=== PATIENT | male | born 1970 | race Caucasian/White ===

== ENCOUNTER 2024-04-02 11:02 | Day surgery (SDC) | payer MEDICAID, SELFPAY ==
[2024-04-02] VITALS (12 sets, daily range): BP systolic 98–191; BP diastolic 54–99; PULSE 86–111; RESP 8–22; TEMP 36.2–36.8; O2SAT 94–96; BMI 35.3
--- NOTE | 2024-04-02 11:36 | DI.CT_ITS ---
Exam(s) CT ABDOMEN PELVIS W EXAM: CT ABDOMEN PELVIS W CLINICAL HISTORY: Umbilical hernia, Abdominal pain TECHNIQUE: Imaging Protocol: Axial computed tomography images with coronal and sagittal reformatted images were created and reviewed. CONTRAST MATERIAL: Intravenous: Omnipaque 350 Contrast volume:100 mL Oral: No COMPARISON: No exams were available for comparison FINDINGS: ABDOMEN: Lung Bases: No acute abnormality. Liver: There is diffuse decreased attenuation of the liver. There are nonspecific parenchymal calcif ications seen in the dome of the right lobe of the liver. Portal, Superior Mesenteric, and Splenic Veins: Unremarkable. Gallbladder and Biliary Tract: Cholelithiasis. No biliary ductal dilatation. Pancreas: Normal density, no abnormal calcifications or inflammatory process. Spleen: Normal. Adrenals: No masses seen. Kidneys: Normal size, contour and axis. Bilateral nephrolithiasis. No obstructive uropathy. No mass es seen. Abdominal Aorta: Abdominal portion non-dilated. Mild atherosclerotic calcification is present. IVC: There is a left-sided inferior vena cava. Bowel: There is diverticulosis of the colon without evidence of acute diverticulitis. The stomach is incompletely distended limiting evaluation. Appendix is unremarkable. Peritoneal Cavity: No ascites, collection or mesenteric inflammatory response. No free air. Lymph Nodes: Within normal limits. Bones: Within normal limits for the patient's age. Soft Tissues: There is a small fat containing left inguinal hernia. There is a moderate-sized fat co ntaining umbilical hernia. There does appear to be omentum located within the hernia. There is fat stranding seen within the hernia. There is a small amount of fluid in the hernia. PELVIS: Bladder: Symmetric distention, no gross wall thickening. Reproductive Organs: Unremarkable as visualized. Lymph Nodes: Within normal limits. Bones: Within normal limits for the patient's age. IMPRESSION: 1. Umbilical hernia containing omentum. There is fat stranding and fluid seen within the hernia. Th e findings suggest incarceration. 2. Findings were discussed with the Savannah Monterroso at 1:44 p.m. on 04/02/2024. RADIATION DOSE DELIVERED: 975.24mGy.cm Total DLP DATA REPOSITORY: All CT scans at this facility are submitted to the National Radiology Data Registry (NRDR) Dose Index Registry (DIR) with the [employer] (ACR). RADIATION OPTIMIZATION: All CT scans at this facility use at least one of these dose optimization te chniques: automated exposure control; mA and/or kV adjustment per patient size (includes targeted exa ms where dose is matched to clinical indication); or iterative reconstruction.
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
[2024-04-02 12:15] LABS: Abs Immature Grans 0.06 10^3/uL (0.0-0.06); Absolute Basophil Count 0.07 10^3/uL (0.0-0.2); Absolute Eosinophil Count 0.15 10^3/uL (0.0-0.7); Absolute Lymphocyte Count 1.45 10^3/uL (1.2-3.4); Absolute Monocyte Count 0.51 10^3/uL (0.1-0.8); Absolute Neutrophil Count 2.77 10^3/uL (1.2-6.7); Basophils % 1.4 %; HCT 45.6 % (40.0-50.0); HGB 15.8 g/dL (13.5-17.5); Immature Grans % 1.2 %; Lactate 1.2 mmol/L (<or=2.0); Lymphocytes % 28.9 %; MCH 29.4 pg (27.0-33.0); MCHC 34.6 % (32.0-36.0); MCV 85 fL (80-95); Monocytes % 10.2 %; Neutrophils % 55.3 %; Platelet Count 233 10^3/uL (130-400); RBC 5.38 10^6/uL (4.36-5.78); RDW 12.3 % (11.8-14.1); RDW-SD 37.7 fL; WBC 5.01 10^3/uL (4.4-10.8)
[2024-04-02 12:33] LABS: ALT 94 U/L (16-63); AST 26 U/L (15-37); Albumin 3.9 g/dL (3.4-5.0); Alkaline Phosphatase 157 U/L (46-116); Anion Gap 9.9 mmol/L (3-11); BUN 14 mg/dL (7-18); Bilirubin, Total 0.52 mg/dL (0.2-1.0); CO2 25.1 mmol/L (21.0-32.0); CREATININE 0.8 mg/dL (0.70-1.30); Calcium 9.5 mg/dL (8.5-10.1); Chloride 99 mmol/L (98-107); Estimated GFR 105.82 (mL/min/1.73m2); Glucose 324 mg/dL (74-106); Lipase 37 U/L (<78); Magnesium 1.8 mg/dL (1.8-2.4); Potassium 4.4 mmol/L (3.5-5.1); Sodium 134 mmol/L (136-145)
[2024-04-02] MEDS: Normal Saline - Diluent 50 ML VIAL IJ (12:57)
[2024-04-02] MEDS: Omnipaque 350 MG/ML 100 ML BTL IJ (12:58)
[2024-04-02] MEDS: Ondansetron 4 MG/2 ML VIAL IVP (13:16)
--- NOTE | 2024-04-02 14:08 | SCONE_ITS ---
Date of service: 04/02/24 Time of Service: 14:08 Assessment and Plan Assessment and plan (1) Incarcerated umbilical hernia: Status: Acute Assessment and plan: 53 yo man with a chronically incarcerated umbilical hernia in setting of obesity and diabetes/pre-diabetes. The hernia is symptomatic and should be repaired because of this. There is no intestinal contents in the hernia and likely some fat infarction will be encountered to explain the increased pain recently. His comorbidities(BMI 35+) require that a minimally-invasive approach be used for repair and mesh should be used as well. He does have an inguinal hernia too which may or may not become symptomatic after repairing the ventral hernia. Hard to say, but time will tell. Overall plan: Laparoscopic ventral hernia repair w/ mesh History of Present Illness Narrative: 53 yo man who has had a hernia for a while. He went to [facility] about 5 days ago because it was hurting more than usual. He was discharged and told to followup outpatient. Today he got up and the hernia started hurting again and so he decided to come to [facility] for evaluation. He has not had any vomiting or nausea or bowel issues. Per report he has never had intra-abdominal surgery. CT scan done here at [facility] shows a fat-containing umbilical hernia with some fluid and stranding around it. Incidental inguinal hernia with fat noted. Patient says he has had nothing to eat or drink since last night. PFSH All Active Problems (Updated 04/02/24 @ 14:21 by Arpan Sanchez MD) Incarcerated umbilical hernia (Acute) Social History Smoking/Tobacco Use Status: Never Smoking risk assessment performed?: Yes Alcohol Intake: never Drug use: Never Housing: house Exam Narrative Exam Narrative: Gen: Non-toxic, comfortable and interactive Neuro: AxOx3 Psych: Good mood and affect Chest: Non-labored breathing Heart: Regular Abdomen: Soft, obese, focally tender around the umbilicus. There is a tender bulge that is not reducible and very firm. No skin changes over top. Results Last Vital Signs Temp 97.2 F L 04/02/24 13:23 Pulse 91 H 04/02/24 13:23 Resp 18 04/02/24 13:23 BP 155/83 H 04/02/24 13:23 Pulse Ox 95 04/02/24 13:23 Labs 04/02/24 12:10 04/02/24 12:10 Labs: Laboratory Results - last 24 hr 04/02/24 12:10 WBC 5.01 RBC 5.38 Hgb 15.8 Hct 45.6 MCV 85 MCH 29.4 MCHC 34.6 RDW 12.3 Plt Count 233 MPV 10.0 Immature Gran % 1.2 Neutrophils % 55.3 Lymphocytes % 28.9 Monocytes % 10.2 Eosinophils % 3.0 Basophils % 1.4 Nucleated RBC % 0.0 Absolute Neutrophils 2.77 Absolute Lymphocytes 1.45 Absolute Monocytes 0.51 Absolute Eosinophils 0.15 Absolute Basophils 0.07 VBG Lactate 1.2 Sodium 134 L Potassium 4.4 Chloride 99 Carbon Dioxide 25.1 Anion Gap 9.9 BUN 14 Creatinine 0.8 Est GFR (CKD-EPI 2020) 105.82 Glucose 324 H Calcium 9.5 Magnesium 1.8 Total Bilirubin 0.52 AST 26 ALT 94 H Alkaline Phosphatase 157 H Total Protein 8.0 Albumin 3.9 Lipase 37
--- NOTE | 2024-04-02 16:01 | ANES.PREOP_ITS ---
General Info Date of Service Date Performed: 04/02/24 Height: 6 ft 1 in Weight: 121.563 kg Body Mass Index (BMI): 35.3 Surgical Procedure: Operation Date: 04/02/24 16:40 Proposed Procedure Side Surgeon p Hernia Ventral Laparoscopic Arpan Sanchez MD Meds Allergies and Home Medications Allergies Allergy/AdvReac Type Severity Reaction Status Date / Time Penicillins Allergy Severe Anaphylaxis Verified 04/02/24 11:19 Home Medication ?Medication ?Instructions ?Recorded metformin 500 mg tablet 500 mg PO BID 04/02/24 Current Visit Medications: Current Medications Generic Name Dose Route Start Last Admin Trade Name Freq PRN Reason Stop Dose Admin IV Miscellaneous Supplies 1 each 04/02/24 11:45 Iv Access-Emergency Dept IV DIRECTED [facility] Iohexol 100 ml 04/02/24 13:00 04/02/24 12:58 Omnipaque 350 Mg/Ml 100 Ml Btl IJ 05/02/24 23:59 100 ml DIRECTED [facility] Administration Sodium Chloride 0 ml 04/02/24 11:32 Normal Saline 10 Ml Vial IJ DIRECTED PRN Sodium Chloride 0 ml 04/02/24 11:32 Normal Saline Flush 10 Ml Syr IVP PRN PRN Sodium Chloride 0 ml 04/02/24 20:00 Normal Saline Flush 10 Ml Syr IVP BID [facility] Sodium Chloride 50 ml 04/02/24 13:00 04/02/24 12:57 Normal Saline - Diluent 50 Ml Vial IJ 50 ml .FOR DI USE [facility] Administration PFSH Active Problems Active Problems: Problem Status Onset Code Incarcerated umbilical hernia Acute K42.0 Tobacco Smoking/Tobacco Use Status: Never Alcohol Alcohol Intake: never Substance Use Substance use: Never Vital Signs and Lab Results Vital Signs Most Recent Vital Signs in EMR: Most Recent Vital Signs Temp Pulse Resp BP Pulse Ox 36.2 C L 91 H 18 155/83 H 95 04/02/24 13:23 04/02/24 13:23 04/02/24 13:23 04/02/24 13:23 04/02/24 13:23 Lab Results 04/02/24 12:10 04/02/24 12:10 Blood Type / Crossmatch: 2 No Data to Display Complete Blood Count: 2 White Blood Count 5.01 10^3/uL (4.4-10.8) 04/02/24 12:10 Red Blood Count 5.38 10^6/uL (4.36-5.78) 04/02/24 12:10 Hemoglobin 15.8 g/dL (13.5-17.5) 04/02/24 12:10 Hematocrit 45.6 % (40.0-50.0) 04/02/24 12:10 Platelet Count 233 10^3/uL (130-400) 04/02/24 12:10 Venous Blood Lactate 1.2 mmol/L (<or=2.0) 04/02/24 12:10 Complete Metabolic Panel: 2 Sodium 134 mmol/L (136-145) L 04/02/24 12:10 Potassium 4.4 mmol/L (3.5-5.1) 04/02/24 12:10 Chloride 99 mmol/L (98-107) 04/02/24 12:10 Carbon Dioxide 25.1 mmol/L (21.0-32.0) 04/02/24 12:10 BUN 14 mg/dL (7-18) 04/02/24 12:10 Creatinine 0.8 mg/dL (0.70-1.30) 04/02/24 12:10 Est GFR (CKD-EPI 2020) 105.82 (mL/min/1.73m2) 04/02/24 12:10 Magnesium 1.8 mg/dL (1.8-2.4) 04/02/24 12:10 Calcium 9.5 mg/dL (8.5-10.1) 04/02/24 12:10 Albumin 3.9 g/dL (3.4-5.0) 04/02/24 12:10 Glucose 324 mg/dL (74-106) H 04/02/24 12:10 Liver Function Panel: 2 Alanine Aminotransferase (ALT/SGPT) 94 U/L (16-63) H 04/02/24 1 2:10 Aspartate Amino Transf (AST/SGOT) 26 U/L (15-37) 04/02/24 12:10 Coagulation Panel: 2 No Data to Display Cardiac Panel: 2 No Data to Display Arterial Blood Gas: 2 No Data to Display Venous Blood Gas: 2 No Data to Display Pancreas Panel: 2 Lipase 37 U/L (<78) 04/02/24 12:10 Thyroid Panel: 2 No Data to Display Infectious Disease: 2 No Data to Display Blood Cultures: 2 No Data to Display Toxicology Panel: 2 No Data to Display Anesthesia Assessment and Plan Anesthesia History Personal History: No History of Anesthesia Complications Family History: No Family History of Anesthesia Complications Exercise Tolerance Exercise Tolerance: Metabolic Equivalents>4 Pertinent Negatives Pertinent Negatives: No Symptoms of GERD, No Major Cardiovascular Symptoms or Complaints, No Major Pulmonary Symptoms or Complaints and No History of CVA/TIA Cardiac & Pulmonary Exam Cardiac Exam: Normal S1/S2 Heart Sounds Pulmonary Exam: Clear Bilateral Breath Sounds Implantable Cardiac Device Does patient have a Pacemaker or an ICD?: No Airway Exam Known Difficult Airway: No Mallampati Class: 2 Mouth Opening: Normal (> 3cm) Thyromental Distance: Greater than 3 cm Neck Range of Motion: Full ROM Neck Circumference: Normal Teeth Condition: Normal Dentition Tooth Numberin 1. Missing per patient 2. Missing per patient ASA Classification ASA Score: ASA 2 Emergency Case?: Yes NPO Status NPO Status: NPO Clears >2 hours, Solids >8 hours Anesthesia Plan Resuscitation Status: Full Code Anesthesia Technique: General Anesthesia Airway Planned: Endotracheal Tube Monitors Used: Standard Monitors
[2024-04-02] MEDS: Lactated Ringers 1,000 ML 30 ML IV (17:01)
--- NOTE | 2024-04-02 17:35 | HERN_PTH ---
PATIENT: Efrem Macario LOC: [facility] U#:[id number] AGE/SX: 53/M ROOM: RE04/02/[address]: Arpan Sanchez : 1970 BED: DIS: 04/02/2024 SPEC #: [id number] RECD: 04/02/24 18:25 STATUS: DELTA SILVA #: [id number] [place]: 04/02/24 17:[address]: Arpan Sanchez DEPT: Surgical Specimen RECD BY: Brie Issa ENTERED: 04/02/24 18:26 SP TYPE: Hernia Sac OT DR: None Tissues: 1 - HERNIA SAC,OTHER Procedures: GROSS AND MICRO LEVEL 2 Comments: [id number]
[2024-04-02] MEDS: Bupivacaine 0.25% Pres-Free 30 ML VIAL (17:50)
--- NOTE | 2024-04-02 18:17 | W.PM.OP ---
Operative Note Operative Note Refer to Anesthesia Record Procedure Description: PROCEDURES PERFORMED: 1. Laparoscopic ventral hernia repair with mesh (IPOM) Preoperative Diagnosis: Incarcerated umbilical hernia Postoperative Diagnosis: Same, fatty liver Surgeon: Tre Sanchez Assist: An Anesthesia: General Anesthesiologist: Mumtaz Indication: Incarcerated umbilical hernia causing significant pain and multiple ED visits. Findings: Incarcerated omentum. Easily reducible with laparoscopic assistance. Fascia approximated primarily and then IPOM repair with mesh. Complications: None Estimated Blood Loss: (10cc) Scant Specimens removed: Hernia sac Grafts or implants: Bard Ventralight mesh Procedure in detail: Written consent was obtained from the patient who was in agreement with the risks, the benefits and the indications for the procedure. The patient was taken to the operating suite and laid supine on the operating table with left arm tucked. IV antibiotics were not indicated. Venodynes were in place. General anesthesia was administered which was tolerated very well. We then prepped and draped the abdomen in sterile fashion. A timeout was performed. When we were all in agreement we began the procedure. Local anesthetic was injected at each trocar site. Just beneath the left costal margin, a small stab incision was made and a 5 mm Optiview trocar was used to enter into the abdomen under direct visualization. The umbilical hernia defect was visible with incarcerated omentum. The liver was inspected and did not appear cirrhotic but was definitely quite fatty. 2 other ports were placed under direct visualization. The 12 mm port was placed lateral, mid- abdomen. I divided the peritoneum lining/hernia sac with the LigaSure circumferentially. This nicely exposed the fascia of the defect and created healthy fresh edges to be re-approximated. The hernia sac was removed and sent to pathology. Using a Estevan-Baldomero I was able to pass Vicryl suture in interrupted fashion and primarily closed the defect. Next I buttressed the closure with a Ventralight mesh using the echo positioning system and used an absorbable tacker to fix it in place. The mesh fixation/skeleton components were removed. Hemostasis was excellent. I closed the 12 mm port defect with 0 Vicryl. The 5 mm ports were removed. I closed the skin with Monocryl and put Dermabond on top. The sponge, instrument and sharps count was correct x3 at the end of the procedure. The patient tolerated the procedure well and was taken to the PACU in hemodynamically stable condition. Date of Procedure: 04/02/24
--- NOTE | 2024-04-02 18:19 | W.PM.DSUDISC ---
Date of service: 04/02/24 Discharge Plan Disposition Patient Disposition: Home Condition: Good Discharge Details Reason For Visit: Torn hernia Attending Provider: Arpan Sanchez Primary Care Provider: None,None Home Meds and New Rx's Prescriptions: No Action metformin 500 mg tablet 500 mg PO BID Patient Comments: TAKE 1 TABLET BY MOUTH TWICE DAILY WITH MEALS Discharge Instructions Additional Instructions: INSTRUCTIONS: Incisions: Keep clean and dry but they do not need to be covered. It is okay to shower but no tub bathing for 1 week. You can peel the glue off after 1 week. Activity: As tolerated. Light duty without any heavy lifting/pulling or pushing for 6-8 weeks. Diet: Regular diet as tolerated. Medications: Resume all of your usual/regular home medications. Follow-up: If you are having any issues or concerns call the surgery office immediately. If you want to have a routine follow-up that is perfectly fine and you can call and schedule an. If everything is otherwise going well, you do not need to follow-up. Pain control: Take Tylenol, 1000 mg, every 6 hours on a schedule for the next 3 days. You can use ibuprofen in addition to Tylenol and use the narcotic medication only as necessary for pain preventing you from sleeping. Overall: Symptoms should not be worsening. If you have any difficulty breathing or you have return of symptoms of brought you to the hospital or your pain is otherwise worsening each day and you should call the doctor's office or come into the hospital to be checked out. Activity:: See instructions Diet:: As Tolerated DS: Diagnosis Discharge Diagnosis (1) Incarcerated umbilical hernia: Status: Acute Asessment and Plan: INSTRUCTIONS: Incisions: Keep clean and dry but they do not need to be covered. It is okay to shower but no tub bathing for 1 week. You can peel the glue off after 1 week. Activity: As tolerated. Light duty without any heavy lifting/pulling or pushing for 6-8 weeks. Diet: Regular diet as tolerated. Medications: Resume all of your usual/regular home medications. Follow-up: If you are having any issues or concerns call the surgery office immediately. If you want to have a routine follow-up that is perfectly fine and you can call and schedule an. If everything is otherwise going well, you do not need to follow-up. Pain control: Take Tylenol, 1000 mg, every 6 hours on a schedule for the next 3 days. You can use ibuprofen in addition to Tylenol and use the narcotic medication only as necessary for pain preventing you from sleeping. Overall: Symptoms should not be worsening. If you have any difficulty breathing or you have return of symptoms of brought you to the hospital or your pain is otherwise worsening each day and you should call the doctor's office or come into the hospital to be checked out.
--- NOTE | 2024-04-02 18:50 | PDOC.ANES ---
Date of service: 04/02/24 Time of Service: 18:50 Anesthesia Note Report Anesthesia Note: Discussing care with Randy in PACU. When asked how the anesthetic was he did state that he remembered people in the room talking for a moment and a sharp needle going into his left side. During the start of the case, right around localization, I did note propofol was partially leaking from a poor connection where it connected to the lactated ringers. I did correct the connection and ensured patient was receiving an adequate dose when it was observed. At that time there was initially elevated sedline numbers and vital signs, however, that can be the case during initialization of the sedline and we were having first physical stimulation post-induction. I did not believe there was awareness at that time. Due to elevated heart rate and blood pressure I did give additional precedex. The patients relation of events does make me believe he had about, per his own recollection, 10-15 seconds of awareness during initial localization. Patient denies any further recollection of events during the case. Reports it was only for those 10-15 seconds. I asked Randy how he was feeling and he expressed that he was feeling good. I asked if he needed to talk to anyone about this event or if he was feeling distressed at all, he denied. I informed him that he would be hearing from one of the anesthesia department members tomorrow and that I would follow up with him on Monday to see how he was doing. I did self-report to Kianna Silva, our departmental senior lead project manager and submitted Juan case for quality review, the Director of Anesthesia was made aware, as was risk management.
--- NOTE | 2024-04-02 19:51 | W.ANESPOSTOP ---
Postoperative Evaluation Date, Time and Location Date Performed: 04/02/24 Time Performed: 19:25 Patient Location: PACU Vital Signs Most Recent Imported Vital Signs: Most Recent Vital Signs Temp Pulse Resp BP Pulse Ox 36.8 C 86 20 98/67 L 95 04/02/24 19:13 04/02/24 19:13 04/02/24 19:13 04/02/24 19:13 04/02/24 19:13 Pain Score Most Recent Pain Score: Most Recent Pain Score Pain Level 0 04/02/24 19:13 Assessment Mental Status: Awake (Alert & Oriented to Patient Baseline) Airway and Respiratory Function: Patent airway with normal (patient baseline) respiratory exam Cardiovascular Function: Hemodynamically Stable Hydration Status: Adequately Hydrated Nausea & Vomiting: No Nausea or Vomiting Pain: Pt. Denies Any Pain Peripheral Nerve Block: Patient did not receive a nerve block Teaching Patient Teaching: Other (Please see ANES note from today. )
[2024-04-02] MEDS: Acetaminophen 500 MG TAB (21:02)
--- NOTE | 2024-04-04 13:27 | PDOC.ANES ---
Date of service: 04/04/24 Time of Service: 13:27 Anesthesia Note Report Anesthesia Note: Attempted to reach out to Randy today to see how he is doing at the number noted under his administrative tab. I will try again tomorrow.
== END 2024-04-02 16:28 | disposition home or self-care (01) ==
LOC: ER 16:12 → SUR 16:27
PROVIDERS: Registered Nurse Emergency; Emergency Provider Physician Assistant; Visit Provider Student in an Organized Health Care Education/Training Program
PROC: 0WQF4ZZ Repair Abdominal Wall, Percutaneous Endoscopic Approach (ICD-10-PCS; CPT 49592; principal; 2024-04-02 16:30)
DX: K42.0 Umbilical hernia with obstruction, without gangrene (principal); E11.9 Type 2 diabetes mellitus without complications; Z79.84 Long term (current) use of oral hypoglycemic drugs; K76.0 Fatty (change of) liver, not elsewhere classified; E66.9 Obesity, unspecified
CPT/HCPCS: 49592; 36415; 80053; 83690; 96374; 99285; 74177; 83605; 83735; 85025; 88302; C1781; J0131; J0665; J1100; J1171; J2405; J2704; J3010; J3475; J3490

== ENCOUNTER 2024-04-13 05:51 | Inpatient (IN) | payer MEDICAID, SELFPAY ==
[2024-04-13] VITALS (69 sets, daily range): BP systolic 106–199; BP diastolic 49–114; PULSE 70–127; RESP 10–32; TEMP 36–36.8; O2SAT 90–99; BMI 34.2
--- OUTSIDE RECORDS SUMMARY | 2024-04-13 05:54 | XMS_ITS | Referral Summary ---
Author Organization [facility] Address [address] [place] [address] Care Team Providers Care Retail Event Coordinator Name Role Phone None, Provider Primary Care Provider Unavailabl e Encounters Date Type Department Care Team Description 04/03/2024 Lab Requisition [facility] Pathology & Laboratory Medicine - [facility] [address] [place] [address] Arpan Sanchez MD Umbilical hernia with obstruction, without gangrene from Last 3 Months Social History Tobacco Use Types Packs/Day Years Used Date Smoking Tobacco: Never Assessed Sex and Gender Information Value Date Recorded Sex Assigned at Not on file Legal Sex Male 8:01 EST Gender Identity Not on file Sexual Orientation Not on file Plan of Treatment Not on file Procedures Procedure Name Priority Date/Time Associated Diagnosis Comments SURGICAL PATHOLOGY Today 04/02/2024 17 :35 EST Umbilical hernia with obstruction, without gangrene from Last 3 Months Results * SURGICAL PATHOLOGY (04/02/2024 17:35 EST) Note to Patient The following pathology results have been interpreted by your pathologist and may be available to you before your health provider has had the opportunity to review them. Please allow time for your provider to receive these results and explore management options, if applicable. 04/04/2024 12:05 [facility] Final Diagnosis A. HERNIA, UMBILICAL, HERNIORRHAPHY: - Mesothelial-lined fibroconnective and fibroadipose tissue with reactive changes, consistent with hernia sac. - Mature adipose tissue with mild reactive changes. 04/04/2024 12:05 [facility] Attestation By the signature below, the attending physician certifies that they have 1) personally conducted a gross and/or microscopic examination of the described specimen(s), and/or personally interpreted the results of laboratory testing of the described specimen(s), and 2) personally rendered or confirmed the above diagnosis. 04/04/2024 12:05 [facility] at 1205 Clinical History Hernia sac/incarcerated umbilical hernia 04/04/2024 12:05 [facility] Gross Description A. Received in formalin labelled with proper patient identification (initials M, J) and hernia sac is a previously disrupted, toledo-rosenthal, fibromembranous, saccular tissue (6.0 x 5.7 x 1.0 cm) and an aggregate of detached fibrofatty tissue fragments (5.2 x 3.4 x 0.8 cm). The saccular tissue is partially covered by lobulated adipose tissue. The inner lining of the saccular tissue is smooth to wrinkled and without gross lesions. Scrap Yard Worker sections of the saccular tissue are submitted in A1 and workforce services representative sections of the detached fibrofatty tissue are submitted in A2. LUCIA WAY([facility]) 04/03/2024 9:25 04/04/2024 12:05 [facility] Performing Lab [facility] 12:05 [facility] Scanned Images 04/04/2024 12:05 [facility] Tissue HERNIA SAC / Unknown 04/02/2024 17:35 EST 04/03/2024 8:03 EST us Arpan Sanchez MD PATHOLOGY ORDERABLES F inal Result [facility] [address] [place] [address] from Last 3 Months Insurance MEDICAID ACO [place] Care Teams Retail Event Coordinator Relationship Specialty Start Date End Date None, Provider PCP - General 03/06/24
--- OUTSIDE RECORDS SUMMARY | 2024-04-13 05:54 | XMS_ITS | Encounter Summary ---
Author Organization [facility] Address [address] [place] [address] Care Team Providers Care Special Forces Weapons Sergeant Name Role Phone None, Provider Primary Care Provider Unavailabl e Encounter Details Date Type Department Care Team (Late st Contact Info) Description 04/03/[address] [facility] Pathology & Laboratory Medicine - [facility] [address] [place] [address] Arpan Sanchez MD [address] [place] [phone] Umbilical hernia with obstruction, without gangrene Social History Tobacco Use Types Packs/Day Years Used Date Smoking Tobacco: Never Assessed Sex and Gender Information Value Date Recorded Sex Assigned at Not on file Legal Sex Male 8:01 EST Gender Identity Not on file Sexual Orientation Not on file documented as of this encounter Plan of Treatment Not on file documented as of this encounter Procedures Procedure Name Priority Date/Time Associated Diagnosis Comments SURGICAL PATHOLOGY Today 04/02/2024 17 :35 EST Umbilical hernia with obstruction, without gangrene documented in this encounter Results * SURGICAL PATHOLOGY (04/02/2024 17:35 EST) Note to Patient The following pathology results have been interpreted by your pathologist and may be available to you before your health provider has had the opportunity to review them. Please allow time for your provider to receive these results and explore management options, if applicable. 04/04/2024 12:[address] [facility] Final Diagnosis A. HERNIA, UMBILICAL, HERNIORRHAPHY: - Mesothelial-lined fibroconnective and fibroadipose tissue with reactive changes, consistent with hernia sac. - Mature adipose tissue with mild reactive changes. 04/04/2024 12:05 [facility] Attestation By the signature below, the attending physician certifies that they have 1) personally conducted a gross and/or microscopic examination of the described specimen(s), and/or personally interpreted the results of laboratory testing of the described specimen(s), and 2) personally rendered or confirmed the above diagnosis. 04/04/2024 12:05 [facility] at 1205 Clinical History Hernia sac/incarcerated umbilical hernia 04/04/2024 12:05 [facility] Gross Description A. Received [...] smooth to wrinkled and without gross lesions. Country Printer Apprentice sections of the saccular tissue are submitted in A1 and promotions representative sections of the detached fibrofatty tissue are submitted in A2. LUCIA WAY([facility]) 04/03/2024 9:25 04/04/2024 12:05 [facility] Performing Lab [facility] 12:05 [facility] Scanned Images 04/04/2024 12:05 [facility] Tissue HERNIA SAC / Unknown 04/02/2024 17:35 EST 04/03/2024 8:03 EST us Arpan Sanchez MD PATHOLOGY ORDERABLES F inal Result [facility] [address] [place] [address] documented in this encounter Visit Diagnoses Diagnosis Umbilical hernia with obstruction, without gangrene Umbilical hernia with obstruction documented in this encounter Care Teams Special Forces Weapons Sergeant Relationship Specialty Start Date End Date None, Provider PCP - General 03/06/24 documented as of this encounter
--- OUTSIDE RECORDS SUMMARY | 2024-04-13 05:54 | XMS_ITS | Clinical Summary ---
Author Organization [facility] Address [address] [place] [address] Care Team Providers Care Stripper Cutter Machine Name Role Phone None, Provider Primary Care Provider Unavailabl e Encounters Date Type Department Care Team Description 04/03/2024 Lab Requisition [facility] Pathology & Laboratory Medicine - [facility] [address] [place] [address] Arpan Sanchez MD Umbilical hernia with obstruction, without gangrene from Last 3 Months Social History Tobacco Use Types Packs/Day Years Used Date Smoking Tobacco: Never Assessed Sex and Gender Information Value Date Recorded Sex Assigned at Not on file Legal Sex Male 8:01 EST Gender Identity Not on file Sexual Orientation Not on file Plan of Treatment Health Maintenance Due Date Last Done Comments Hepatitis C Screen 1970 Hepatitis B Vaccine (1 of 3 - 19+ 3-dose series) 05/21 COVID-19 Vaccine ( season) 2023 Procedures Procedure Name Priority Date/Time Associated Diagnosis [...] management options, if applicable. 04/04/2024 12:05 EST [facility] Final Diagnosis A. HERNIA, UMBILICAL, HERNIORRHAPHY: - Mesothelial-lined fibroconnective and fibroadipose tissue with reactive changes, consistent with hernia sac. - Mature adipose tissue with mild reactive changes. 04/04/2024 12:05 [facility] Attestation By the signature below, the attending physician certifies that they have 1) personally conducted a gross and/or microscopic examination of the described specimen(s), and/or personally interpreted the results of laboratory testing of the described specimen(s), and 2) personally rendered or confirmed the above diagnosis. 04/04/2024 12:05 [facility] at 1205 Clinical History Hernia sac/incarcerated umbilical hernia 04/04/2024 12:05 [facility] Gross Description A. Received [...] smooth to wrinkled and without gross lesions. Heel Gouger sections of the saccular tissue are submitted in A1 and unit support representative sections of the detached fibrofatty tissue are submitted in A2. [address]UCIA WAY([facility]) 04/03/2024 9:25 04/04/2024 12:05 [facility] Performing Lab [facility] 12:05 [facility] Scanned Images 04/04/2024 12:05 [facility] Tissue HERNIA SAC / Unknown 04/02/2024 17:35 EST 04/03/2024 8:03 EST us Arpan Sanchez MD PATHOLOGY ORDERABLES F inal Result [facility] [address] [place] [address] from Last 3 Months Insurance MEDICAID A[place] Care Teams Stripper Cutter Machine Relationship Specialty Start Date End Date None, Provider PCP - General 03/06/24
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
[2024-04-13 06:28] LABS: Abs Immature Grans 0.32 10^3/uL (0.0-0.06); Absolute Eosinophil Count 0.11 10^3/uL (0.0-0.7); Absolute Lymphocyte Count 1.26 10^3/uL (1.2-3.4); Absolute Monocyte Count 0.98 10^3/uL (0.1-0.8); Absolute Neutrophil Count 9.82 10^3/uL (1.2-6.7); Basophils % 0.6 %; Eosinophils % 0.9 %; HCT 38.7 % (40.0-50.0); HGB 13.3 g/dL (13.5-17.5); Immature Grans % 2.5 %; MCH 28.9 pg (27.0-33.0); MCHC 34.4 % (32.0-36.0); MCV 84 fL (80-95); MPV 9.3 fL (8.0-11.0); Monocytes % 7.8 %; Neutrophils % 78.2 %; Platelet Count 283 10^3/uL (130-400); RDW 12.5 % (11.8-14.1); RDW-SD 38.7 fL; WBC 12.56 10^3/uL (4.4-10.8)
[2024-04-13] MEDS: Ondansetron 4 MG/2 ML VIAL IVP (06:28)
[2024-04-13] MEDS: MORPHine 4 MG/ML SYR IVP ×3 (06:28→09:28)
[2024-04-13 06:29] LABS: Lactate 2.6 mmol/L (<or=2.0)
[2024-04-13] MEDS: Lactated Ringers 1,000 ML 1000 ML IV (06:29)
[2024-04-13] MEDS: levoFLOXacin 750 MG/150 ML BAG 100 MG IVPB (06:31)
[2024-04-13] MEDS: metroNIDAZOLE 500 MG/100 ML BAG 100 MG IVPB ×2 (06:31→15:51)
[2024-04-13 06:33] LABS: Absolute Basophil Count 0.08 10^3/uL (0.0-0.2)
[2024-04-13 06:44] LABS: ALT 48 U/L (16-63); AST 37 U/L (15-37); Albumin 2.9 g/dL (3.4-5.0); Alkaline Phosphatase 254 U/L (46-116); BUN 9 mg/dL (7-18); Bilirubin, Total 0.64 mg/dL (0.2-1.0); CREATININE 1.1 mg/dL (0.70-1.30); Calcium 9.6 mg/dL (8.5-10.1); Chloride 92 mmol/L (98-107); Estimated GFR 80.27 (mL/min/1.73m2); Glucose 376 mg/dL (74-106); Potassium 3.4 mmol/L (3.5-5.1); Sodium 130 mmol/L (136-145); Total Protein 8.1 g/dL (6.4-8.2)
[2024-04-13 07:08] LABS: COVID-19 PCR Negative (Negative); Influenza A PCR Positive (Negative); Influenza B PCR Negative (Negative); RSV PCR Negative (Negative)
[2024-04-13 07:09] LABS: Source Nasopharynx
[2024-04-13 07:09] LABS: Procalcitonin 0.38 ng/mL
[2024-04-13] MEDS: Normal Saline 1,000 ML 1000 ML IV (07:15)
[2024-04-13] MEDS: ACETAMINOPHEN 1,000 MG/100 ML BAG 400 MG IVPB (07:24)
--- NOTE | 2024-04-13 07:43 | ED.PROG_ITS ---
Date of service: 04/13/24 Time of Service: 08:00 Medical Decision Making This is a 53-year-old male patient with a recent history of incarcerated umbilical omental hernia, status postoperative repair 2 weeks ago, who presented to our emergency department with redness, abdominal wall cellulitis, meeting criteria for sepsis. The patient was initially quite tachycardic, received intravenous hydration to good effect, broad-spectrum antibiosis, laboratory studies with a mild leukocytosis to 12.5, lactate 2.6, and positive for influenza A. At the time that I took over his care, disposition was pending completion of his CT of the chest abdomen and pelvis to evaluate for the source of his sepsis, presumed to be intra-abdominal. Also considered pneumonia given his influenza A. I independently reviewed the CT and discussed the results with the radiologist. The patient has an intra-abdominal abscess, 8 cm, with a fistula to the anterior abdominal wall. On reassessment the patient does not have active drainage from any fistula tract at the level of the skin. He did have some ongoing pain for which a dose of morphine was provided. I discussed this patient's case with the general surgeon, who plans to take this patient to the OR for removal of infected mesh, washout, and will admit the patient to the floor for ongoing intravenous antibiosis. The patient remained hemodynamically improved while under my care. Eliana Strange MD Medical Records Medical records reviewed: Yes I reviewed the patient's medical records. Lab Data Lab results reviewed: Yes I reviewed the patient's lab results. Quality:SDOH Health Related Social Needs: No Data to Display Discharge Plan Disposition Patient Disposition: Admit to [facility] Condition: Stable Discharge Details Chief Complaint: Abd Prob Clinical Impression: Abdominal wall cellulitis, Sepsis Primary Care Provider: None,None ED Provider: Eliana Strange Home Meds and New Rx's Prescriptions: No Action metformin 500 mg tablet 500 mg PO BID Patient Comments: TAKE 1 TABLET BY MOUTH TWICE DAILY WITH MEALS
[2024-04-13] MEDS: Omnipaque 350 MG/ML 100 ML BTL IJ (07:50)
--- NOTE | 2024-04-13 07:51 | DI.CT_ITS ---
Exam(s) CT CHEST/ABD/PEL W EXAM: CT CHEST/ABD/PEL W CLINICAL HISTORY: post op umb hernia repair, now septic, cellulitis. TECHNIQUE: Imaging Protocol: Axial computed tomography images with coronal and sagittal reformatted images were created and reviewed. Computer aided detection (CAD) was utilized. CONTRAST MATERIAL: Intravenous: Omnipaque 350 Contrast volume:100 ml Oral: / no COMPARISON: CT CT ABDOMEN PELVIS W from 04/02/2024 FINDINGS: CHEST: Tracheobronchial tree: Patent. Pulmonary parenchyma: No consolidation or dominant measurable mass. Pleura: No effusion or pneumothorax. Mediastinum: Within normal limits. Aorta: Thoracic portion non-dilated. Pulmonary arteries: No visible emboli. Heart: No pericardial effusion. Bones: Unremarkable for age. No lytic or blastic lesions.No compression fractures. Soft tissues: Unremarkable. ABDOMEN and PELVIS: Liver: Markedly enlarged with severe steatosis. Calcifications again noted at near the dome. No valorie surable mass. Gallbladder and biliary tract: There are few small calcified gallstones in the dependent portion. No wall thickening. No biliary dilatation. Pancreas: Normal density, no abnormal calcifications or inflammatory process. Spleen: Mildly enlarged. Kidneys: Normal size, contour and axis. Small nonobstructing stone lower pole right kidney. Tiny sto ne mid left kidney. No obstructive uropathy. No suspicious masses seen. Adrenal glands: No masses seen. Aorta: Abdominal portion non-dilated. Lymph nodes: Within normal limits. Soft tissues: The patient is status post repair of the previously noted umbilical hernia. There is i s a large amount of abnormal gas in the right anterior abdominal wall subcutaneous fat at the level o f the umbilicus. The large amount of air within the umbilicus. Beneath the level of the umbilicus, within the abdominal cavity, there is a large abscess with air-fluid level measuring roughly 8 x 8 x 7 cm. Skin thickening. Small fat containing left inguinal hernia, unchanged. Bladder: Unremarkable. Bowel: No obstruction or bowel wall thickening. Mild diverticulosis of the lower descending and sigmo id colon. Increased stool in the sigmoid and rectum. Appendix normal. Peritoneal cavity: No ascites. No focal collection. No mesenteric inflammatory response. No free ai r. Bones: Unremarkable for age. Reproductive organs: Within normal limits. IMPRESSION: No acute abnormality in the chest. Status post umbilical hernia repair. Inflammation in the anterior abdominal wall and umbilicus with a large amount of soft tissue air. 8 centimeter abscess seen deep to the abdominal wall musculature. RADIATION DOSE DELIVERED: Total DLP DATA REPOSITORY: All CT scans at this facility are submitted to the National Radiology Data Registry (NRDR) Dose Index Registry (DIR) with the [employer] ([employer]). RADIATION OPTIMIZATION: All CT scans at this facility use at least one of these dose optimization te chniques: automated exposure control; mA and/or kV adjustment per patient size (includes targeted exa ms where dose is matched to clinical indication); or iterative reconstruction.
[2024-04-13] MEDS: VANCOMYCIN 2,000 MG in Normal Saline 500 ML 333.3333 MG IVPB (08:08)
--- NOTE | 2024-04-13 08:59 | DI.VRAD_ITS ---
Addendum created by Iman Murillo MD on 04/13/2024 9:01:35 AM EST: THIS REPORT CONTAINS FINDINGS THAT MAY BE CRITICAL TO PATIENT CARE. The findings were verbally communicated via telephone conference with Dr.Amanda Strange at 9:01 AM EST on 04/13/2024. The findings were acknowledged and understood. Initial report created on 04/13/2024 8:59:08 AM EST: PROCEDURE INFORMATION: Exam: CT Chest With Contrast; Diagnostic Exam date and time: 04/13/2024 7:36 AM Age: 53 years old Clinical indication: Fever; Abdominal pain; Periumbilical; Prior surgery; Surgery date: <1 month; Surgery type: Hernia repair S/P 10 days TECHNIQUE: Imaging protocol: Diagnostic computed tomography of the chest with contrast. 3D rendering (Not supervised by radiologist): MIP and/or 3D reconstructed images were created by the technologist. Radiation optimization: All CT scans at this facility use at least one of these dose optimization techniques: automated exposure control; mA and/or kV adjustment per patient size (includes targeted exams where dose is matched to clinical indication); or iterative reconstruction. Contrast material: OMNI 350; Contrast volume: 100 ml; Contrast route: INTRAVENOUS (IV); COMPARISON: CT ABDOMEN PELVIS W 04/02/2024 12:57 PM FINDINGS: Lungs: Atelectasis in both lower lobes. No focal consolidation. No mass.. Pleural spaces: Unremarkable. No pneumothorax. No pleural effusion. Heart: There is calcification of the aortic valve annulus. Coronary arteries: Coronary artery calcifications may indicate coronary artery disease. Lymph nodes: Unremarkable. No enlarged lymph nodes. Vasculature: Unremarkable. No aortic aneurysm. Bones/joints: Unremarkable. No acute fracture. Soft tissues: Unremarkable. IMPRESSION: No focal consolidation. No mass.. PROCEDURE INFORMATION: Exam: CT Abdomen And Pelvis With Contrast Exam date and time: 04/13/2024 7:36 AM Age: 53 years old Clinical indication: Fever; Abdominal pain; Periumbilical; Prior surgery; Surgery date: <1 month; Surgery type: Hernia repair S/P 10 days TECHNIQUE: Imaging protocol: Computed tomography of the abdomen and pelvis with contrast. 3D rendering (Not supervised by radiologist): MIP and/or 3D reconstructed images were created by the technologist. Radiation optimization: All CT scans at this facility use at least one of these dose optimization techniques: automated exposure control; mA and/or kV adjustment per patient size (includes targeted exams where dose is matched to clinical indication); or iterative reconstruction. Contrast material: OMNI 350; Contrast volume: 100 ml; Contrast route: INTRAVENOUS (IV); COMPARISON: CT ABDOMEN PELVIS W 04/02/2024 12:57 PM FINDINGS: Liver: Calcifications in the right lobe of the liver are stable Gallbladder and biliary ducts: Gallstones in the gallbladder. Pancreas: Normal. No ductal dilation. Spleen: Splenomegaly 14 cm. Adrenal glands: Normal. No mass. Kidneys and ureters: Normal. No hydronephrosis. Stomach and bowel: Unremarkable. No obstruction. No mucosal thickening. Appendix: No evidence of appendicitis. Intraperitoneal space: 8.3 x 7 x 8 cm air-fluid collection in the anterior aspect of the abdomen. There are Surrounding bubbles of air. Likely an abscess. Vasculature: Unremarkable. No abdominal aortic aneurysm. Lymph nodes: Unremarkable. No enlarged lymph nodes. Urinary bladder: Unremarkable as visualized. Reproductive: Unremarkable as visualized. Bones/joints: Unremarkable. No acute fracture. Soft tissues: Fistula from the abscess through the abdominal wall into the subcutaneous fat series 6, image 96. The fistula may continue to the skin.. 8.3 x 4.3 x 7 cm collection of air in the subcutaneous fat adjacent to the umbilicus. This may indicate infection . . Air in the umbilical region. IMPRESSION: 1. 8.3 x 7 x 8 cm air-fluid collection in the anterior aspect of the abdomen. There are Surrounding bubbles of air. Likely an abscess. . 2. Fistula from the abscess through the abdominal wall into the subcutaneous fat series 6, image 96. The fistula may continue to the skin.. 3. 8.3 x 4.3 x 7 cm collection of air in the subcutaneous fat adjacent to the umbilicus. This may indicate infection . . 4. Gallstones in the gallbladder. 5. Air in the umbilical region. 6. Splenomegaly 14 cm. Dictated and Authenticated by: Iman Murillo MD. Orderin Juan Pablo Salgado MD
[2024-04-13 11:17] LABS: Bilirubin Negative (Negative); Blood Small (Negative); Clarity Clear (Clear); Glucose >=1000 mg/dL (Negative); Ketones Negative (Negative); Leukocyte Esterase Negative (Negative); Nitrite Negative (Negative); Specific Gravity <= 1.005 (1.005-1.025)
[2024-04-13 11:24] LABS: Bacteria Rare HPF (Negative); C & S Indicated? C&S Done As Ordered; Casts Negative LPF (Negative); Crystals Negative HPF (Negative); Epithelial Cells Rare HPF (Negative); Mucus Negative (Negative); WBC 0-2 HPF (0-5)
--- NOTE | 2024-04-13 11:44 | ANES.PREOP_ITS ---
General Info Date of Service Date Performed: 04/13/24 Height: 6 ft 1 in Weight: 117.934 kg Body Mass Index (BMI): 34.2 Meds Allergies and Home Medications Allergies Allergy/AdvReac Type Severity Reaction Status Date / Time Penicillins Allergy Severe Anaphylaxis Verified 04/13/24 05:59 Home Medication ?Medication ?Instructions ?Recorded metformin 500 mg tablet 500 mg PO BID 04/02/24 Current Visit Medications: Current Medications Generic Name Dose Route Start Last Admin Trade Name Aaron PRN Reason Stop Dose Admin IV Miscellaneous Supplies 1 each 04/13/24 06:15 Iv Access-Emergency Dept IV DIRECTED [facility] Iohexol 100 ml 04/13/24 08:00 04/13/24 07:50 Omnipaque 350 Mg/Ml 100 Ml Btl IJ 05/13/24 23:59 100 ml DIRECTED [facility] Administration Sodium Chloride 0 ml 04/13/24 06:06 Normal Saline Flush 10 Ml Syr IVP PRN PRN Sodium Chloride 0 ml 04/13/24 08:30 Normal Saline Flush 10 Ml Syr IVP BID [facility] Sodium Chloride 0 ml 04/13/24 06:06 Normal Saline 10 Ml Vial IJ DIRECTED PRN PFSH Active Problems Active Problems: Problem Status Onset Code Sepsis Acute A41.9 Abdominal wall cellulitis Acute L03.311 Awareness under anesthesia Acute T88.53XA Incarcerated umbilical hernia Acute K42.0 Tobacco Smoking/Tobacco Use Status: Never Alcohol Alcohol Intake: never Substance Use Substance use: Never Substance use type: does not use Vital Signs and Lab Results Vital Signs Most Recent Vital Signs in EMR: Most Recent Vital Signs Temp Pulse Resp BP Pulse Ox 36.7 C 88 18 126/69 96 04/13/24 05:57 04/13/24 10:46 04/13/24 10:46 04/13/24 10:46 04/13/24 10:46 Lab Results 04/13/24 06:05 04/13/24 06:05 Blood Type / Crossmatch: 2 No Data to Display Complete Blood Count: 2 White Blood Count 12.56 10^3/uL (4.4-10.8) H 04/13/24 06:05 Red Blood Count 4.60 10^6/uL (4.36-5.78) 04/13/24 06:05 Hemoglobin 13.3 g/dL (13.5-17.5) L 04/13/24 06:05 Hematocrit 38.7 % (40.0-50.0) L 04/13/24 06:05 Platelet Count 283 10^3/uL (130-400) 04/13/24 06:05 Venous Blood Lactate 2.6 mmol/L (<or=2.0) H* 04/13/24 06:05 Complete Metabolic Panel: 2 Sodium 130 mmol/L (136-145) L 04/13/24 06:05 Potassium 3.4 mmol/L (3.5-5.1) L 04/13/24 06:05 Chloride 92 mmol/L (98-107) L 04/13/24 06:05 Carbon Dioxide 28.0 mmol/L (21.0-32.0) 04/13/24 06:05 BUN 9 mg/dL (7-18) 04/13/24 06:05 Creatinine 1.1 mg/dL (0.70-1.30) 04/13/24 06:05 Est GFR (CKD-EPI 2020) 80.27 (mL/min/1.73m2) 04/13/24 06:05 Magnesium 1.8 mg/dL (1.8-2.4) 04/02/24 12:10 Calcium 9.6 mg/dL (8.5-10.1) 04/13/24 06:05 Albumin 2.9 g/dL (3.4-5.0) L 04/13/24 06:05 Glucose 376 mg/dL (74-106) H 04/13/24 06:05 Liver Function Panel: 2 Alanine Aminotransferase (ALT/SGPT) 48 U/L (16-63) 04/13/24 06: 05 Aspartate Amino Transf (AST/SGOT) 37 U/L (15-37) 04/13/24 06:05 Coagulation Panel: 2 No Data to Display Cardiac Panel: 2 No Data to Display Arterial Blood Gas: 2 No Data to Display Venous Blood Gas: 2 No Data to Display Pancreas Panel: 2 Lipase 37 U/L (<78) 04/02/24 12:10 Thyroid Panel: 2 No Data to Display Infectious Disease: 2 Coronavirus (COVID-19)(PCR) Negative (Negative) 04/13/24 06:23 Coronavirus 2019 Source Nasopharynx 04/13/24 06:23 Influenza Virus Type A (PCR) Positive (Negative) A 04/13/24 06 :23 Influenza Virus Type B (PCR) Negative (Negative) 04/13/24 06:2 3 Respiratory Syncytial Virus (PCR) Negative (Negative) 04/13/24 06:23 Blood Cultures: 2 No Data to Display Toxicology Panel: 2 No Data to Display Anesthesia Assessment and Plan Anesthesia History Personal History: No History of Anesthesia Complications Family History: No Family History of Anesthesia Complications Exercise Tolerance Exercise Tolerance: Metabolic Equivalents>4 Pertinent Negatives Pertinent Negatives: No Symptoms of GERD, No Major Cardiovascular Symptoms or Complaints and No History of CVA/TIA Cardiac & Pulmonary Exam Cardiac Exam: Normal S1/S2 Heart Sounds Pulmonary Exam: Rhonchi Present and Active Cough or Cold Cardiac and Pulmonary Comment:: Discussed need to proceed due to cellulitis, discussed risk regarding active Flu A Implantable Cardiac Device Does patient have a Pacemaker or an ICD?: No Airway Exam Known Difficult Airway: No Mallampati Class: 2 Mouth Opening: Normal (> 3cm) Thyromental Distance: Greater than 3 cm Neck Range of Motion: Full ROM Neck Circumference: Normal Teeth Condition: Normal Dentition ASA Classification ASA Score: ASA 2 Emergency Case?: Yes NPO Status NPO Status: NPO Clears >2 hours, Solids >8 hours Anesthesia Plan Resuscitation Status: Full Code Anesthesia Technique: General Anesthesia Airway Planned: Endotracheal Tube Pain Management: Surgeon and patient request nerve block Monitors Used: Standard Monitors
--- NOTE | 2024-04-13 12:26 | HPE_ITS ---
Date of service: 04/13/24 Time of Service: 12:41 Assessment and Plan Assessment and plan (1) Abdominal wall cellulitis: Status: Acute Assessment and plan: IV antibiotics (2) Abdominal wall abscess at site of surgical wound: Status: Acute Assessment and plan: 53-year-old male who unfortunately acquired the flu right around the time of the laparoscopic umbilical hernia repair. The coughing all week has clearly been the main contributor to his discomfort. Unfortunately, over the last 24 to 48 hours he has developed concerns for a soft tissue infection. My interpretation of the CT scan, as well as a conversation with Dr. Sanchez, is that the fluid and gas all sits anterior to the mesh and in the soft tissue. The underlying mesh could be infected but it is impossible to know at this time. We discussed exploratory laparotomy with removal of the mesh versus localized exploration with drain placement, versus nonoperative management with IV antibiotics only. Given the amount of air in the subcutaneous tissue, I feel that some exploration is warranted. I had a long conversation with the patient and his . They are on board with the plan. I intend to make an incision, perform some debridement, hopefully place a drain in the air-fluid pocket deep to the muscle, packed the wound, and be done. I will culture the fluid to help guide antibiotic treatment. Patient will be kept on IV antibiotics, likely for a prolonged period of time. If I have any concerns for necrotizing fasciitis or enterocutaneous fistula or necrotizing acute soft tissue infection, then I may end up proceeding with a full exploratory laparotomy and explantation of the mesh. Patient and his expressed understanding. They had ample opportunity ask questions. Patient has signed informed consent. We will go ahead and get him to the operating room soon as possible. Thank you for the consultation. ? IV fluids ? IV pain meds ? IV antibiotics in the form of vancomycin, levofloxacin, metronidazole ? Admission to [facility] under the care of the surgical service ? Lovenox for DVT prophylaxis ? Consider PICC line placement in the next 1 to 2 days History of Present Illness Narrative: Patient is a 53-year-old male who presents to the emergency room. He underwent laparoscopic umbilical hernia repair with mesh placement with Dr. Sanchez about 10 days ago on April 02, 2024. He reports that almost immediately after he went home after surgery he started to develop a cough. He has had cold-like symptoms ever since. This caused a lot of pain from his hernia repair because of the persistent coughing. He had decreased appetite although no nausea or vomiting. He has had a few bowel movements although he said minimal food all week. He is now tested positive for influenza A. He reports that he noticed in the last 1 to 2 days some increased swelling at the bellybutton and then yesterday developed significant redness all around the bellybutton. He did have at least 1 or 2 phone calls with the surgery office throughout the week. This morning he eventually decided to come to the emergency room. In the emergency room he was found to have a white blood cell count of 12.5. His lactate was slightly elevated at 2.6. He was given 2 L of fluid. He had a CT scan of the abdomen and pelvis. This shows subcutaneous air in the periumbilical area and the location of the cellulitis. It also shows a air-fluid collection deep to the muscle layer right below the umbilicus that measures 8 cm in diameter. When I reviewed the images this does appear to be anterior to the mesh and does not actually involve the intra-abdominal cavity. There does seem to be a connection of the subfascial air-fluid collection with the subcutaneous air. Patient's vital signs have been stable in the emergency room. He is afebrile. Review of Systems All systems reviewed & are unremarkable except as noted in HPI and below PFSH All Active Problems (Updated 04/13/24 @ 12:35 by Migel GIPSON MD) Abdominal wall abscess at site of surgical wound (Acute) Sepsis (Acute) Abdominal wall cellulitis (Acute) Awareness under anesthesia (Acute) Please see ANES note 04/02/2024 Incarcerated umbilical hernia (Acute) Social History Smoking/Tobacco Use Status: Never Smoking risk assessment performed?: Yes Alcohol Intake: never Drug use: Never Substance use type: does not use Housing: house Do you feel safe at home: Yes Do you feel safe in your relationship?: Yes Meds Allergies and Home Medications Allergies Allergy/AdvReac Type Severity Reaction Status Date / Time Penicillins Allergy Severe Anaphylaxis Verified 04/13/24 05:59 Home Medications ?Medication ?Instructions ?Recorded ?Confirmed ?Type metformin 500 mg tablet 500 mg PO BID 04/02/24 04/13/24 History Exam Narrative Exam Narrative: Const General: cooperative, minimal discomfort Nutritional Appearance: Obese [facility] Head: normocephalic and atraumatic Ears: hearing grossly normal bilaterally Nose: external nose normal Mouth: mucous membranes a bit dry Eyes General: appearance normal, both eyes and related structures, sclera anicteric Neck Neck: normal visual inspection, full ROM and supple Resp Effort & Inspection: normal respiratory effort and able to speak in complete sentences Cardio Rate: regular rate GI Inspection: Umbilicus is quite distended and there is a large area of erythema around it at least 10 to 15 cm in diameter. This has been marked on the skin at 6 AM this morning and is fairly unchanged since that time. The left sided port sites are healing well with Dermabond flaking off, incisions clean, dry, intact without erythema or bruising. Palpation: soft, mildly tender to palpation around the umbilicus, not tender elsewhere. No guarding, no rebound tenderness. Neuro General: patient alert, patient oriented x3 and moves all extremities Psych Appearance: grossly normal Results Labs 04/13/24 06:05 04/13/24 06:05 Labs: Laboratory Results - last 24 hr 04/13/24 04/13/24 04/13/24 06:05 06:23 10:49 WBC 12.56 H RBC 4.60 Hgb 13.3 L Hct 38.7 L MCV 84 MCH 28.9 MCHC 34.4 RDW 12.5 Plt Count 283 MPV 9.3 Immature Gran % 2.5 Neutrophils % 78.2 Lymphocytes % 10.0 Monocytes % 7.8 Eosinophils % 0.9 Basophils % 0.6 Nucleated RBC % 0.0 Absolute Neutrophils 9.82 H Absolute Lymphocytes 1.26 Absolute Monocytes 0.98 H Absolute Eosinophils 0.11 Absolute Basophils 0.08 VBG Lactate 2.6 H* Sodium 130 L Potassium 3.4 L Chloride 92 L Carbon Dioxide 28.0 Anion Gap 10.0 BUN 9 Creatinine 1.1 Est GFR (CKD-EPI 2020) 80.27 Glucose 376 H Calcium 9.6 Total Bilirubin 0.64 AST 37 ALT 48 Alkaline Phosphatase 254 H Total Protein 8.1 Albumin 2.9 L Procalcitonin 0.38 Urine Color Yellow Urine Clarity Clear Urine pH 6.0 Ur Specific [place] <= 1.005 Urine Protein 30 H Urine Ketones Negative Urine Blood Small H Urine Nitrite Negative Urine Bilirubin Negative Urine Urobilinogen 1.0 H Ur Leukocyte Esterase Negative Urine RBC 5-10 H Urine WBC 0-2 Ur Epithelial Cells Rare Urine Crystals Negative Urine Bacteria Rare Urine Casts Negative Urine Mucus Negative Ur Culture Indicated? C&S Done As Ordered Urine Glucose >=1000 H COVID-19 Source Nasopharynx SARS-CoV-2 (PCR) Negative Influenza Type A (PCR) Positive A Influenza Type B (PCR) Negative RSV (PCR) Negative Last Vital Signs Temp 36.7 C 04/13/24 05:57 Pulse 90 04/13/24 11:30 Resp 21 04/13/24 11:30 BP 138/75 04/13/24 11:30 Pulse Ox 95 04/13/24 11:30 Time Spent Time spent with Patient: 40-54 minutes Time was spent: preparing to see the patient(eg.review tests), obtaining and/or reviewing separately otained hiistory, ordering medications,tests, procedures, referring, communicating with other health caregiver assisted living, indepentently interpreting results, counseling the patient and care coordination
[2024-04-13] MEDS: Albuterol/Ipratropium 3 ML UPD VIAL (12:32)
[2024-04-13] MEDS: Lactated Ringers 1,000 ML 30 ML IV (12:56)
--- NOTE | 2024-04-13 13:09 | W.PC.ACHO ---
Registration Status: Primary Language: Preferred Language: ED Information & Data Chief Complaint Abd Prob 04/13/24 06:26 Triage Note incarcerated hernia repair 04/13/24 05:53 done here about 10 days ago. pt got sick after the procedure and had some coughing spells. sharp pain at site of hernia when he coughs. worsening over the last few days. pain 10/10. 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 Temperature 36.7 C 04/13/24 05:57 Temperature Source Oral 04/13/24 05:57 Pulse 90 04/13/24 11:30 Pulse 91 H 04/13/24 11:30 Respiratory Rate 21 04/13/24 11:30 Blood Pressure 138/75 04/13/24 11:30 Blood Pressure Mean 96 04/13/24 11:30 Pulse Oximetry 95 04/13/24 11:30 Oxygen Delivery Method Room Air 04/13/24 05:57 Oxygen Flow Rate 0 04/13/24 05:53 Pain Level 9 04/13/24 09:28 Comment RA 04/13/24 08:40 Allergies Penicillins Allergy (Severe, Verified 04/13/24 05:59) Anaphylaxis Precautions Isolation Standard precaution 04/13/24 05:57 Active Medications Generic Name Dose Route Start Last Admin Trade Name Freq PRN Reason Stop Dose Admin Iohexol 100 ml 04/13/24 08:00 04/13/24 07:50 Omnipaque 350 Mg/Ml 100 Ml Btl IJ 05/13/24 23:59 100 ml DIRECTED [place] Administration IV IV Catheter Type [Right Saline Lock Forearm] IV Catheter Type [Right Saline Lock Antecubital] IV Catheter Gauge [Right 18 Forearm] IV Catheter Gauge [Right 18 Antecubital] Diagnostics 04/13/24 04/13/24 04/13/24 Range/Units 10:49 06:23 06:05 WBC 12.56 H (4.4-10.8) 10^3/uL RBC 4.60 (4.36-5.78) 10^6/uL Hgb 13.3 L (13.5-17.5) g/dL Hct 38.7 L (40.0-50.0) % MCV 84 (80-95) fL MCH 28.9 (27.0-33.0) pg MCHC 34.4 (32.0-36.0) % RDW 12.5 (11.8-14.1) % Plt Count 283 (130-400) 10^3/uL MPV 9.3 (8.0-11.0) fL Immature Gran % 2.5 % Neutrophils % 78.2 % Lymphocytes % 10.0 % Monocytes % 7.8 % Eosinophils % 0.9 % Basophils % 0.6 % Nucleated RBC % 0.0 (0.0-0.3) % Absolute Neutrophils 9.82 H (1.2-6.7) 10^3/uL Absolute Lymphocytes 1.26 (1.2-3.4) 10^3/uL Absolute Monocytes 0.98 H (0.1-0.8) 10^3/uL Absolute Eosinophils 0.11 (0.0-0.7) 10^3/uL Absolute Basophils 0.08 (0.0-0.2) 10^3/uL VBG Lactate 2.6 H* (<or=2.0) mmol/L Sodium 130 L (136-145) mmol/L Potassium 3.4 L (3.5-5.1) mmol/L Chloride 92 L (98-107) mmol/L Carbon Dioxide 28.0 (21.0-32.0) mmol/L Anion Gap 10.0 (3-11) mmol/L BUN 9 (7-18) mg/dL Creatinine 1.1 (0.70-1.30) mg/dL Est GFR (CKD-EPI 2020) 80.27 (mL/min/1.73m2) Glucose 376 H (74-106) mg/dL Calcium 9.6 (8.5-10.1) mg/dL Total Bilirubin 0.64 (0.2-1.0) mg/dL AST 37 (15-37) U/L ALT 48 (16-63) U/L Alkaline Phosphatase 254 H (46-116) U/L Total Protein 8.1 (6.4-8.2) g/dL Albumin 2.9 L (3.4-5.0) g/dL Procalcitonin 0.38 ng/mL Urine Color Yellow (Yellow) Urine Clarity Clear (Clear) Urine pH 6.0 (5-8) Ur Specific Reyno <= 1.005 (1.005-1.025) Urine Protein 30 H (Neg-Trace) mg/dL Urine Ketones Negative (Negative) mg/dL Urine Blood Small H (Negative) Urine Nitrite Negative (Negative) Urine Bilirubin Negative (Negative) Urine Urobilinogen 1.0 H (Up to 0.2) mg/dL Ur Leukocyte Esterase Negative (Negative) Urine RBC 5-10 H (0-2) HPF Urine WBC 0-2 (0-5) HPF Ur Epithelial Cells Rare (Negative) HPF Urine Crystals Negative (Negative) HPF Urine Bacteria Rare (Negative) HPF Urine Casts Negative (Negative) LPF Urine Mucus Negative (Negative) Ur Culture Indicated? C&S Done As Ordered Urine Glucose >=1000 H (Negative) mg/dL COVID-19 Source Nasopharynx SARS-CoV-2 (PCR) Negative (Negative) Influenza Type A (PCR) Positive A (Negative) Influenza Type B (PCR) Negative (Negative) RSV (PCR) Negative (Negative) 04/13/24 10:49 Urine Culture - Pending Urine - Clean Catch 04/13/24 06:21 Blood Culture - Pending Blood 04/13/24 06:05 Blood Culture - Pending Blood Intake and Output - 24 Hour Total 04/13/24 05:51 thru 04/13/24 11:46 Intake Total 2850 Balance 2850 Weight 117.934 kg Intake: IV 2850 Falls Risk Assessment History of Falls No History 04/13/24 05:57 Contributing Factors No Factors 04/13/24 05:57 Ambulatory Aids Independent 04/13/24 05:57 Tubes/Lines With any additional score 04/13/24 05:57 Gait Evaluation No gait disturbance 04/13/24 05:57 Cognition No cognitive impairment 04/13/24 05:57 Fall Total Score 20 04/13/24 05:57 Level of Risk Standard/Low Risk 04/13/24 05:57 Problems (Last Reviewed 04/02/24 @ 11:38 by Savannah Monterroso NP) Abdominal wall abscess at site of surgical wound (Acute) Abdominal wall cellulitis (Acute) v v v v v v v v v Sending and/or Receiving Nurses: Please use comment section below to note any information pertinent to the patient hand-off not included above. Information / Comments: Pt sent to OR prior to coming to [facility]. Pt positive for Flu A, given 2L IV Fluids in Er, 18G RFA, 18G LAC. Tacycardic at 103, Report received from:Wendi MCALLISTER ED at [id number]
--- NOTE | 2024-04-13 13:29 | ANES.NERVE_ITS ---
Nerve Block Single Injection Procedure Date and Time Date Performed: 04/13/24 Procedure Start: 13:11 Location Where Procedure Performed Procedure Location: Operating Room Procedure Stop: 13:19 Reason Performed: Postoperative Analgesia Requesting Provider: Migel Veras [facility] Timeout Performed Timeout Performed: Yes Monitoring Used ECG, Blood Pressure, SpO2 and ETCO2 Sterility Sterility: Hand Hygiene, Surgical Cap, Surgical Mask, Sterile Gloves and Chlorhexidine Sedation Given During Procedure Sedation Given (Indicate Dose Given): No Sedation given Patient Mental Status Patient Mental Status: Performed under general anesthesia Nerve Block 1st Nerve Block: Laterality: Bilateral Block Type: TAP Bilateral Ultrasound Image Saved?: Yes Needle / Catheter Used: 100mm SonoPlex II Local Anesthetic Bolus (Indicate Dose Given): Injected in 3-5ml increments after negative blood aspiration, Half of Total block solution given into each side, Bupivacaine 0.25% Dose:: 40 and Exparel Dose:: 20 ml Additives (Indicate Dose Given): Normal Saline Ultrasound: Sterile probe cover and gel used Nerve Stimulator: Not Used Paresthesia: None Procedure Tolerated: No Complications and Patient tolerated well Procedure Outcome: Successful Performed By: Cristofer Bull
--- NOTE | 2024-04-13 14:39 | W.ANESPOSTOP ---
Postoperative Evaluation Date, Time and Location Date Performed: 04/13/24 Time Performed: 14:39 Patient Location: PACU Vital Signs Most Recent Imported Vital Signs: Most Recent Vital Signs Temp Pulse Resp BP Pulse Ox 36.7 C 95 H 15 122/70 95 04/13/24 14:24 04/13/24 14:31 04/13/24 14:31 04/13/24 14:30 04/13/24 14:31 Pain Score Most Recent Pain Score: Patient denying substantial pain at this time. Reports some soreness on lower belly and some soreness just above umbilicus. Did not give a number. Assessment Mental Status: Awake (Alert & Oriented to Patient Baseline) Airway and Respiratory Function: Abnormal Respiratory exam (See explanation) (Flu+. Will go to floor with O2) and Patient has been admitted and is receiving care as an inpatient Cardiovascular Function: Hemodynamically Stable Hydration Status: Adequately Hydrated Nausea & Vomiting: No Nausea or Vomiting Pain: Pain is tolerable per patient Peripheral Nerve Block: Regional nerve block not resolved at time of post operative discharge
[2024-04-13] MEDS: Albuterol/Ipratropium 3 ML UPD VIAL UPD (14:44)
--- NOTE | 2024-04-13 15:02 | ROE_ITS ---
Operative Note Operative Note PRE-OP DIAGNOSIS: Abdominal wall and intra-abdominal abscess POST-OP DIAGNOSIS: same SURGEON: Migel Veras [place] ANESTHESIA TYPE: General LMA/ETT and Primary Nerve Block Refer to Anesthesia Record ESTIMATED BLOOD LOSS: 20 PATHOLOGY: other (Wound culture sent) COMPLICATIONS: None Patient was transported to: PACU Patient's condition: stable Findings: Made a 6 cm incision immediately below the umbilicus in the midline. The more inferior subcutaneous fatty tissue had a normal appearance but once I got into the pocket underneath the skin of the umbilicus there was extensive drainage of very foul-smelling pus. I cultured this. I then explored the subcutaneous fatty tissue extensive locally. Identified the whole and the fascia at the base of the umbilicus and a pocket deep to the abdominal muscle and fascia but anterior to the underlying mesh. I irrigated copiously. I placed a 19 [place] Islander drain in the pocket between the mesh and the fascia. I packed the wound. Procedure Description: After obtaining informed consent, patient was brought back to the operating room. He is placed supine on the operating table. He is placed under general anesthesia with endotracheal intubation. Abdominal wall nerve block was performed by anesthesia with ultrasound guidance. His abdomen was prepped and draped in a sterile manner. Timeout was performed. I began by making a 5 to 6 cm incision in the midline just below the umbilicus. I used cautery to dissect through the subcutaneous fat. At the superior aspect of the incision I entered the air and fluid pocket below the skin of the umbilicus. I immediately noted very foul-smelling pus. I took aerobic and anaerobic cultures. I then suctioned quite a large quantity of green liquid pus. I then began to explore the abscess. There is a pocket along the umbilical stalk down to the level of the fascia. This tracked a few centimeters laterally to the right and superior to the stock. At the superior aspect of the pocket at the level of the fascia I was able to identify the opening that communicated with the pocket deep to the fascia and muscle but anterior to the mesh. I suctioned here and then was able to palpate the mesh. I did not enter the abdominal cavity proper. I used cautery to incise the subcutaneous fatty tissue along the right side of the abscess pocket and my incision. On imaging he had a lot of subcutaneous air and this fatty tissue. I probed extensively looking for more pockets of purulent fluid. I only identified healthy fat. At this point I opted to irrigate both the wound and the subfascial pocket. I used about a liter of normal saline. I then placed a 19 [place]er [place] drain into the pocket between the mesh and the fascia and muscle of the abdominal wall. I tracked this through the normal- appearing soft tissue along the right side of the incision and exited the skin outside of the area of cellulitis. I made a chalo in the skin with a 15 blade scalpel. I brought the drain out using a tonsil. I then used a 2-0 silk suture to secure the drain in place. I then packed the wound with a 3 inch Kerlix roll. I covered with 4 x 4 gauze and Tegaderm. We placed a drain sponge around the KARINE drain and covered this with Medipore tape. Patient tolerated well. He was extubated without complication. He went to recovery in stable condition. Disposition: Patient will be admitted to the [facility]. He will remain on the surgical service. Date of Procedure: 04/13/24
[2024-04-13] MEDS: Acetaminophen 500 MG TAB 1000 MG PO ×2 (15:50→21:47)
[2024-04-13] MEDS: Normal Saline Flush 10 ML SYR IVP (18:26)
[2024-04-13] MEDS: Enoxaparin 40 MG/0.4 ML SYR SC (21:47)
[2024-04-13] MEDS: VANCOMYCIN 1,250 MG in Normal Saline 250 ML 166.667 MG IVPB (21:49)
[2024-04-14] MEDS: Normal Saline Flush 10 ML SYR IVP ×7 (00:10→21:38)
[2024-04-14] MEDS: metroNIDAZOLE 500 MG/100 ML BAG 100 MG IVPB ×4 (00:23→21:01)
[2024-04-14 01:42] VITALS: BP 117/78; PULSE 89; RESP 20; TEMP 36.5; O2SAT 93
[2024-04-14 07:01] LABS: Abs Immature Grans 0.33 10^3/uL (0.0-0.06); Absolute Basophil Count 0.04 10^3/uL (0.0-0.2); Absolute Eosinophil Count 0.04 10^3/uL (0.0-0.7); Absolute Lymphocyte Count 1.09 10^3/uL (1.2-3.4); Absolute Monocyte Count 0.76 10^3/uL (0.1-0.8); Absolute Neutrophil Count 7.65 10^3/uL (1.2-6.7); Basophils % 0.4 %; Eosinophils % 0.4 %; HGB 11.1 g/dL (13.5-17.5); Immature Grans % 3.3 %; MCH 28.8 pg (27.0-33.0); MCHC 33.6 % (32.0-36.0); MCV 86 fL (80-95); MPV 9.6 fL (8.0-11.0); Monocytes % 7.7 %; Neutrophils % 77.2 %; Platelet Count 329 10^3/uL (130-400); RBC 3.86 10^6/uL (4.36-5.78); RDW 12.9 % (11.8-14.1); RDW-SD 40.5 fL; WBC 9.91 10^3/uL (4.4-10.8)
[2024-04-14 07:27] LABS: Anion Gap 10.9 mmol/L (3-11); BUN 9 mg/dL (7-18); CO2 29.1 mmol/L (21.0-32.0); CREATININE 0.7 mg/dL (0.70-1.30); Calcium 8.7 mg/dL (8.5-10.1); Chloride 100 mmol/L (98-107); Estimated GFR 110.18 (mL/min/1.73m2); Glucose 304 mg/dL (74-106); Potassium 4.4 mmol/L (3.5-5.1); Sodium 140 mmol/L (136-145)
[2024-04-14 07:36] VITALS: BP 132/87; PULSE 87; RESP 16; TEMP 36.2; O2SAT 94
[2024-04-14] MEDS: Acetaminophen 500 MG TAB 1000 MG PO ×3 (07:36→21:02)
[2024-04-14] MEDS: levoFLOXacin 750 MG/150 ML BAG 100 MG IVPB (09:05)
[2024-04-14] MEDS: VANCOMYCIN/WATER (PEG) 1.25 GM/250 ML BAG IVPB (09:05)
--- NOTE | 2024-04-14 09:32 | INITIAL_ITS ---
Date of service: 04/14/24 Time of Service: 09:33 Care Management Initial Assmt Initial Assessment Reason for Hospitalization: Abdominal wall abscess at the side of surgical wound Functional Status/Living Situation Patient Presentation: Efrem had an umbilical hernia repair on 04/02/24, and presented 11 days later with an abdominal abscess that required I&D with drain placement. He is being treated with IV ABX and will be getting a PICC line in 1-2 days so he will be able to discharge with IV ABX. Patient prefers to get set up with home IV equipment if he has the option, cultures are pending, course to follow. CM will continue to follow. Town of Residence: [place] with Resides with: Spouse (Ellen) Significant Other/Family: Out of area ([place] ) Natural Supports: Employment Status: Employed (Self employed, builds houses) Instrumental Activities of Daily Living (ADLs): Independent Medications Medication Management: No Issues/Barriers identified Physical Functioning/Mobility Assistive Device: None Advance Directives Advance Directives: Do you have an Advance Directive: N 04/02/24 11:11 AD On File at [facility]: N 04/02/24 11:11 Date Asked 04/13/24 04/14/24 08:03 AD Date Reviewed COLST On File at [facility] No 04/13/24 15:19 COLST Date Scanned Code Status Resuscitation Status Full Code Portal Pt does not currently have a portal and education provided: Yes Insurance Coverage/Financial Issues Insurance: Medicaid Financial Issues: None identified Care Team Visit Care Team Role Provider Type None None Primary Care Provider NON-[facility] STAFF PHYSICIAN Eliana Strange MD Emergency Provider [facility]AFF PHYSICIAN [facility] Ad[facility] Provider [facility] STAFF PHYSICIAN Attending Provider Discharge Potential Discharge Needs: PCP F/U Appt and Surgical F/U Appt Anticipated Barriers to Discharge: Medical Status Patient/Family Education Needs: Review discharge instructions, discuss Ask Me Three Transportation: Private vehicle Plan: Efrem will follow up with Surgical after discharge and be offered a t-doc f/u if needed. He does not have a local PCP and will need support with coordination of IV abx and possibly [facility] RN services prior to discharge. Surgical will be asked to follow HH orders, if they are needed. CM will continue to follow. Social Determinants of Health Screening Social Determinants of Health last assessed: 04/15/24 Will the Patient Participate in the Screening?: Yes Do you worry about having a steady place to live?: no Problems where you live: no known problems In the past 12 months, have you had to go without electric, gas, oil or water in your home?: no Have you or anyone in your house had to go without enough food to eat?: no Has lack of transportation kept you from medical appointments or from doing t hings needed for daily living?: no Has anyone in your life made you feel unsafe or unsupported?: no How hard is it for you to pay for the very basics like food, housing, medical care, and heating? Would you say it is:: Not hard at all Do you want help finding or keeping work or a job?: I do not need or want help If for any reason you need help with day-to-day activities such as bathing, preparing meals, shopping, managing finances, etc., do you get the help you need?: I don?t need any help How often do you feel lonely or isolated from those around you?: Never Do you speak a language other than Georgian at home?: No PFSH All Active Problems (Updated 04/13/24 @ 12:35 by Migel GIPSON MD) Abdominal wall abscess at site of surgical wound (Acute) Sepsis (Acute) Abdominal wall cellulitis (Acute) Awareness under anesthesia (Acute) Please see ANES note 04/02/2024 Incarcerated umbilical hernia (Acute) Social History Smoking/Tobacco Use Status: Never Smoking risk assessment performed?: Yes Alcohol Intake: never Drug use: Never Substance use type: does not use Housing: house Do you feel safe at home: Yes Do you feel safe in your relationship?: Yes
[2024-04-14] MEDS: Lactated Ringers 1,000 ML 75 ML IV (12:10)
[2024-04-14] MEDS: Insulin Aspart 300 UNITS/3 ML PEN SC ×2 (12:12→17:01)
--- NOTE | 2024-04-14 12:13 | W.PM.PROGNOT ---
Date of Service Date of service: 04/14/24 Time of Service: 11:00 Assessment and Plan Assessment and plan (1) Abdominal wall abscess at site of surgical wound: Status: Acute Assessment and plan: 53-year-old male who unfortunately seems to have developed a mesh infection after a umbilical hernia repair about 10 days ago. He is now postop day 1 from incision and drainage of the wound and KARINE drain placement. He has had improvement in his pain and discomfort although he still remains fairly tender. He definitely feels better overall than he did when he came in yesterday. His white blood cell count has returned to normal limits. He has not had any fevers. He is tolerating p.o. intake. Gram stain shows gram-positive cocci and gram-negative rods. Preliminary cultures show Staph aureus. Sensitivities pending. ?Continue IV vancomycin, levofloxacin, and metronidazole until cultures are finalized -Continue regular diet. -Continue to encourage out of bed and ambulation and incentive spirometer -Continue IV Tylenol scheduled, with as needed morphine and Zofran -Daily dressing changes to be done by the surgeon for now. Patient request premedication with the IV morphine prior to dressing change. -Patient will need a PICC line put in in the next day or 2 -Patient will be discharged home on IV antibiotics -Patient will need to follow-up with Dr. Sanchez in the office in 1 week, assuming he goes home in the next few days. -Dr. Marquez taking over in the morning Subjective Subjective Interval history since last seen: Patient reports overall feeling better this morning than he did yesterday morning. His abdominal pain is not gone but is much better. He has not had any nausea or vomiting. He has been able to get up out of bed independently. He is tolerating p.o. intake. He has not had any fevers. White blood cell count has normalized this morning. Labs are otherwise unremarkable. Exam Narrative Exam Narrative: General?awake, alert, oriented, sitting in a chair, no apparent distress HEENT?normocephalic, atraumatic. Sclera anicteric. Mucous membranes moist. Neck?supple, no masses Respiratory?unlabored, no use of accessory muscles Abdomen?is a KARINE in the right lower quadrant with small amount of bloody fluid in the bulb and in the tubing. There is some bruising at the skin insertion site of blood and small amount of serous fluid. I did strip and flush the drain. He does appear to be some clot in the drain at the level of the skin. Although it did flush fairly easily, this seems to be impeding some of the drainage coming out the tube, which is why it is draining around the tube. I then covered the area with fresh gauze and tape. In the periumbilical area he continues to have persistent cellulitis. It has actually tracked outside some of the markings that were made yesterday morning when he first presented to the emergency room. The skin is a little bit less taut and a tad less angry looking. He was able to tolerate me removing the packing from the midline infraumbilical wound and replacing it with fresh dry gauze packing. I used a Jyoti wrap 2 inch wide roll as the packing. I covered it with 4 x 4 gauze and Tegaderm. He did have a significant amount of pain with the packing change. Objective Last Vital Signs Temp 36.2 C L 04/14/24 07:36 Pulse 87 04/14/24 07:36 Resp 16 04/14/24 07:36 BP 132/87 04/14/24 07:36 Pulse Ox 94 04/14/24 07:36 Laboratory Results - last 24 hr 04/14/24 06:35 WBC 9.91 RBC 3.86 L Hgb 11.1 L D Hct 33.0 L MCV 86 MCH 28.8 MCHC 33.6 RDW 12.9 Plt Count 329 MPV 9.6 Immature Gran % 3.3 Neutrophils % 77.2 Lymphocytes % 11.0 Monocytes % 7.7 Eosinophils % 0.4 Basophils % 0.4 Nucleated RBC % 0.0 Absolute Neutrophils 7.65 H Absolute Lymphocytes 1.09 L Absolute Monocytes 0.76 Absolute Eosinophils 0.04 Absolute Basophils 0.04 Sodium 140 D Potassium 4.4 D Chloride 100 Carbon Dioxide 29.1 Anion Gap 10.9 BUN 9 Creatinine 0.7 Est GFR (CKD-EPI 2020) 110.18 Glucose 304 H Calcium 8.7 Random Vancomycin 5.0 Time Spent with Patient Time Spent with Patient: 25-34 minutes Time was spent: preparing to see the patient(eg.review tests), ordering medications,tests, procedures, counseling the patient and care coordination
--- NOTE | 2024-04-14 13:12 | PDOC.ANES ---
Date of service: 04/14/24 Time of Service: 13:12 Anesthesia Note Report Anesthesia Note: Stopped by to see Randy today to assess pain and touch base related to his experience. Patient with family, partner and sons, at bedside. Patient reports feeling good and much less discomfort than he expected, reporting 4/10 and tolerable. Discussed bracing with a pillow when coughing, discussed water consumption to help with moving secretions out of lungs. Discussed pain control post-block and timeline when block should resolve. All questions answered and patient left with dietary services conducting their visit.
[2024-04-14] MEDS: MORPHine 4 MG/ML SYR IM/IV ×2 (13:51→21:37)
[2024-04-14] MEDS: VANCOMYCIN/WATER (PEG) 1.5 GM/300 ML BAG IVPB ×2 (15:16→22:55)
[2024-04-14 15:23] VITALS: BP 138/85; PULSE 84; RESP 17; TEMP 36; O2SAT 94
[2024-04-14] MEDS: Enoxaparin 40 MG/0.4 ML SYR SC (21:13)
[2024-04-15] MEDS: Normal Saline Flush 10 ML SYR IVP ×6 (00:01→21:00)
[2024-04-15] MEDS: MORPHine 4 MG/ML SYR IM/IV ×3 (00:01→16:25)
[2024-04-15] MEDS: Acetaminophen 500 MG TAB 1000 MG PO ×3 (01:53→14:06)
[2024-04-15] MEDS: metroNIDAZOLE 500 MG/100 ML BAG 100 MG IVPB ×4 (01:54→20:59)
[2024-04-15 01:55] VITALS: BP 157/72; PULSE 83; RESP 18; TEMP 36.7; O2SAT 95
[2024-04-15 02:20] VITALS: BP 138/80
[2024-04-15] MEDS: VANCOMYCIN/WATER (PEG) 1.5 GM/300 ML BAG IVPB (06:02)
[2024-04-15 08:16] VITALS: BP 141/93; PULSE 78; RESP 19; TEMP 36.7; O2SAT 97
[2024-04-15] MEDS: levoFLOXacin 750 MG/150 ML BAG 100 MG IVPB (08:49)
[2024-04-15] MEDS: Insulin Aspart 300 UNITS/3 ML PEN SC ×3 (08:49→17:08)
--- NOTE | 2024-04-15 09:18 | PDOC.CMACT ---
Date of service: 04/15/24 Time of Service: 09:18
--- NOTE | 2024-04-15 13:34 | PDOC.CMPRO ---
Date of service: 04/15/24 Time of Service: 13:34 Care Management Progress Note Progress Note Text Progress Note Text: Efrem was awake and lying in bed when CM met with him. He is s/p I&D with drain placement from an abdominal wall abscess that developed after hernia repain on 04/02/24. He is being treated with IV ABX and will be getting a PICC line in 1-2 days so he will be able to discharge with IV ABX. Patient prefers to get set up with home IV equipment if he has the option, cultures are pending, course to follow. Discharge Potential Discharge Needs: Surgical F/U Appt and Other (T-Doc) Anticipated Barriers to Discharge: Medical Status Patient/Family Education Needs: Review discharge instructions, discuss Ask Me Three Transportation: Private vehicle Plan: Efrem will follow up with Surgical after discharge and be offered a t-doc f/u if needed. He does not have a local PCP and will need support with coordination of IV abx and possibly [facility] RN services prior to discharge. Surgical will be asked to follow HH orders, if services are needed. CM will continue to follow. Social Determinants of Health Screening Social Determinants of Health last assessed: 04/15/24 Will the Patient Participate in the Screening?: Yes Do you worry about having a steady place to live?: no Problems where you live: no known problems In the past 12 months, have you had to go without electric, gas, oil or water in your home?: no Have you or anyone in your house had to go without enough food to eat?: no Has lack of transportation kept you from medical appointments or from doing things needed for daily living?: no Has anyone in your life made you feel unsafe or unsupported?: no How hard is it for you to pay for the very basics like food, housing, medical care, and heating? Would you say it is:: Not hard at all Do you want help finding or keeping work or a job?: I do not need or want help If for any reason you need help with day-to-day activities such as bathing, preparing meals, shopping, managing finances, etc., do you get the help you need?: I don?t need any help How often do you feel lonely or isolated from those around you?: Never Do you speak a language other than Latvian at home?: No
[2024-04-15 15:32] LABS: Vancomycin, Trough 9.3 ug/mL (10.0-20.0)
[2024-04-15 16:16] VITALS: BP 140/83; PULSE 80; RESP 19; TEMP 36.9; O2SAT 96
[2024-04-15] MEDS: VANCOMYCIN 2,000 MG in Normal Saline 500 ML 250 MG IVPB (17:09)
--- NOTE | 2024-04-15 17:31 | W.PM.PROGNOT ---
Date of Service Date of service: 04/15/24 Time of Service: 17:31 Assessment and Plan Assessment and plan (1) Abdominal wall abscess at site of surgical wound: Status: Acute Assessment and plan: Patient has staph aureus infection involving his mesh and the superior lying tissues which became cellulitic and abscess. Good drainage has been established and the cellulitis is responding well except for the superior and right lateral portions of the abdominal wall which are lagging behind. I doubt that complete control of this infection can be established without removing the mesh which is problematic because it was placed laparoscopically and it is likely that the actual hernia defect which is quite small, would have to be enlarged to get the mesh out through an open incision. The mesh is held in place by absorbable tacks. There are no holding sutures which does simplify this a little. If the residual infection does not respond to antibiotics then I would say the patient needs to return to the operating room sooner. If all of the induration and cellulitis responds then perhaps he could be managed as an outpatient. Currently the plan is to continue with triple antibiotics awaiting sensitivities. Exam Narrative Exam Narrative: I initially saw this patient first thing in the morning and then came back again in the early evening to give premedication for packing removal. Patient is now postop day #2 from incision, drainage, debridement of diffuse cellulitis and abscess at the site of a laparoscopic umbilical hernia repair with mesh Both times he was feeling better in terms of infection, still having some pain with moving, tolerating a regular diet. Const General: cooperative, comfortable, in distress and other (Moves about independently) Resp Auscultation: clear to auscultation bilaterally Cardio Rate: regular rate and not tachycardic Rhythm: regular rhythm GI Other: In the morning there was erythema persisting and even a little beyond the marked line, although the area of extension was to far bilateral aspects and there was no underlying induration there. In the mid part with the more intense erythema there was diffuse induration. By the early evening much of the erythema and induration had subsided except for the area just superior and to the right side of the open wound, towards the drain skin exit site. The patient is administered 4 mg of IV push morphine. With excellent analgesia and affect, the packing is removed and there is notable foul odor. There is an open defect in the depth of the wound, presumably the hernia defect although that was described as being closed, and the drain is in this defect where it goes deep to abut against the mesh. This is the area where the purulent collection was discovered. The drain is acting more like a conduit than a close drain system. The soft tissues surrounding the open wound have a healthy granulating appearance. Psych Appearance: grossly normal Mood: congruent mood Affect: normal affect Attitude: cooperative Thought Process: normal Insight: insight good Objective Last Vital Signs Temp 36.9 C 04/15/24 16:16 Pulse 80 04/15/24 16:16 Resp 19 04/15/24 16:16 BP 140/83 04/15/24 16:16 Pulse Ox 96 04/15/24 16:16 Laboratory Results - last 24 hr 04/15/24 14:48 Vancomycin Trough 9.3 L Time Spent with Patient Time Spent with Patient: 35-49 minutes Time was spent: preparing to see the patient(eg.review tests), obtaining and/or reviewing separately otained hiistory, ordering medications,tests, procedures, referring, communicating with other health career and technology education teacher and counseling the patient
[2024-04-15 19:50] VITALS: BP 171/95; PULSE 97; RESP 18; TEMP 36.4; O2SAT 95
[2024-04-15] MEDS: Enoxaparin 40 MG/0.4 ML SYR SC (20:59)
[2024-04-16] MEDS: VANCOMYCIN 2,000 MG in Normal Saline 500 ML 250 MG IVPB ×2 (00:07→08:22)
[2024-04-16] MEDS: MORPHine 4 MG/ML SYR IM/IV ×3 (02:32→19:38)
[2024-04-16] MEDS: metroNIDAZOLE 500 MG/100 ML BAG 100 MG IVPB ×2 (02:32→08:23)
[2024-04-16 07:02] LABS: Abs Immature Grans 0.82 10^3/uL (0.0-0.06); HCT 33.7 % (40.0-50.0); HGB 11.4 g/dL (13.5-17.5); MCH 28.5 pg (27.0-33.0); MCHC 33.8 % (32.0-36.0); MCV 84 fL (80-95); Platelet Count 432 10^3/uL (130-400); RDW 12.6 % (11.8-14.1); RDW-SD 38.9 fL; WBC 10.01 10^3/uL (4.4-10.8)
[2024-04-16 07:21] LABS: Anion Gap 2.9 mmol/L (3-11); BUN 7 mg/dL (7-18); CO2 32.1 mmol/L (21.0-32.0); CREATININE 0.8 mg/dL (0.70-1.30); Calcium 9.5 mg/dL (8.5-10.1); Chloride 103 mmol/L (98-107); Estimated GFR 105.82 (mL/min/1.73m2); Glucose 261 mg/dL (74-106); Potassium 4.6 mmol/L (3.5-5.1); Sodium 138 mmol/L (136-145)
[2024-04-16 07:34] LABS: Absolute Neutrophil Count 6.21 10^3/uL (1.2-6.7)
[2024-04-16 07:35] LABS: Diff Comment Manual Differential; Polychromasia Present
--- NOTE | 2024-04-16 08:25 | W.PM.PROGNOT ---
Date of Service Date of service: 04/16/24 Time of Service: 08: Assessment and Plan Assessment and plan (1) Abdominal wall abscess at site of surgical wound: Status: Acute Assessment and plan: POD #2 s/p I&D of umbilical abscess/wound and KARINE drain placement, due to infected umbilical hernia repair which was performed on 04/02. Cultures showed reynoso-sensitive stap aureus. Currently he is receiving Vancomycin, Levofloxacin and Metronidazole. Will transition to doxcycline. Encouraged activity OOB, sitting in the chair and ambulation Pain control. Will request to have morphine administered prior to packing change to ensure comfort. Regular diet Continue with pain control and watchful waiting to ensure continued improvement of cellulitis, given the high concern for possible infection of the mesh within the abdomen. Subjective Subjective Interval history since last seen: Randy reports he has a bad headache today but otherwise is feeling okay. He mentions when he had the packing changed yesterday, it was exquistely painful. Exam Const General: cooperative, healthy appearing and comfortable Orientation: alert and oriented x3 Resp Effort & Inspection: normal respiratory effort, no audible wheezes and no cough Skin Other: Erythema around the umbilical wound is starting to recede from the outlines drawn. Induration appreciated superior to the umbilicus. Tender to palpation. KARINE drain with dark, sanginous drainage. Objective Last Vital Signs Temp 36.4 C L 04/15/24 19:50 Pulse 97 H 04/15/24 19:50 Resp 18 04/15/24 19:50 BP 171/95 H 04/15/24 19:50 Pulse Ox 95 04/15/24 19:50 Laboratory Results - last 24 hr 04/15/24 04/16/24 14:48 06:40 WBC 10.01 RBC 4.00 L Hgb 11.4 L Hct 33.7 L MCV 84 MCH 28.5 MCHC 33.8 RDW 12.6 Plt Count 432 H MPV 9.0 Immature Gran % See Differential Neutrophils % 62.0 Lymphocytes % 24.0 Monocytes % 8.0 Eosinophils % 5.0 Basophils % 1.0 Nucleated RBC % 3.0 H Absolute Neutrophils 6.21 Absolute Lymphocytes 2.40 Absolute Monocytes 0.80 Absolute Eosinophils 0.50 Absolute Basophils 0.10 RBC Morphology See Below Polychromasia Present Sodium 138 Potassium 4.6 Chloride 103 Carbon Dioxide 32.1 H Anion Gap 2.9 L BUN 7 Creatinine 0.8 Est GFR (CKD-EPI 2020) 105.82 Glucose 261 H Calcium 9.5 Vancomycin Trough 9.3 L Time Spent with Patient Time Spent with Patient: <25 minutes Time was spent: preparing to see the patient(eg.review tests), obtaining and/or reviewing separately otained hiistory, indepentently interpreting results and counseling the patient
[2024-04-16] MEDS: Acetaminophen 500 MG TAB 1000 MG PO ×2 (08:37→19:38)
[2024-04-16 08:47] VITALS: BP 140/90; PULSE 89; RESP 16; TEMP 36.4; O2SAT 95
[2024-04-16] MEDS: Insulin Aspart 300 UNITS/3 ML PEN SC ×3 (09:35→17:17)
[2024-04-16] MEDS: Normal Saline Flush 10 ML SYR IVP ×2 (09:36→21:46)
[2024-04-16 15:14] VITALS: BP 156/97; PULSE 88; RESP 18; TEMP 36.5; O2SAT 97
--- NOTE | 2024-04-16 16:09 | CMPROGNOTE_ITS ---
Date of service: 04/16/24 Time of Service: 16:09 Care Management Progress Note Progress Note Text Progress Note Text: Efrem was sitting up in bed when CM met with him. He stated that he is doing much better today than when he arrived. He reported that per MD, his antibiotics are going to be changed to oral, instead of IV, therefore he will not need coordination of home IV antibiotics, which he is happy about. He stated that he is looking forward to returning home, and that his will drive him home once he is medically cleared. CM will continue to follow. Discharge Potential Discharge Needs: PCP F/U Appt Anticipated Barriers to Discharge: None Identified Patient/Family Education Needs: Review discharge instructions, discuss Ask Me Three Transportation: Private vehicle Plan: Efrem will return home when medically cleared. His will transport him home via private vehicle. He will follow up with Surgical services after discharge and be offered a t-doc f/u if needed. CM will continue to follow. Social Determinants of Health Screening Social Determinants of Health last assessed: 04/16/24 Will the Patient Participate in the Screening?: Yes Do you worry about having a steady place to live?: no Problems where you live: no known problems In the past 12 months, have you had to go without electric, gas, oil or water in your home?: no Have you or anyone in your house had to go without enough food to eat?: no Has lack of transportation kept you from medical appointments or from doing things needed for daily living?: no Has anyone in your life made you feel unsafe or unsupported?: no How hard is it for you to pay for the very basics like food, housing, medical care, and heating? Would you say it is:: Not hard at all Do you want help finding or keeping work or a job?: I do not need or want help If for any reason you need help with day-to-day activities such as bathing, preparing meals, shopping, managing finances, etc., do you get the help you nee d?: I don?t need any help How often do you feel lonely or isolated from those around you?: Never Do you speak a language other than Romansh at home?: No
--- NOTE | 2024-04-16 17:40 | W.PM.PROGNOT ---
Date of Service Date of service: 04/16/24 Time of Service: 17:40 Assessment and Plan Assessment and plan (1) Abdominal wall abscess at site of surgical wound: Status: Acute Assessment and plan: We have switched Efrem's antibiotics over to p.o. doxycycline, and we will see how he will tolerate that over the next day or 2. I will repeat the white blood cell count tomorrow, and reassess the wound at that point. Hopefully we can get him discharged home, and try to manage this as an outpatient. Subjective Subjective Interval history since last seen: Efrem tells me he is feeling a little bit better compared to yesterday. Although he did have some difficulty sleeping overnight because of disruptions. His pain has been well-controlled. He is eating and drinking okay Exam GI Other: His abdomen is soft, and I agree that there is a bit of induration around some of the surrounding periumbilical soft tissues. There is minimal erythema this afternoon. The effluent in the drain looks like old blood Objective Last Vital Signs Temp 97.7 F 04/16/24 15:14 Pulse 88 04/16/24 15:14 Resp 18 04/16/24 15:14 BP 156/97 H 04/16/24 15:14 Pulse Ox 97 04/16/24 15:14 Laboratory Results - last 24 hr 04/16/24 06:40 WBC 10.01 RBC 4.00 L Hgb 11.4 L Hct 33.7 L MCV 84 MCH 28.5 MCHC 33.8 RDW 12.6 Plt Count 432 H MPV 9.0 Immature Gran % See Differential Neutrophils % 62.0 Lymphocytes % 24.0 Monocytes % 8.0 Eosinophils % 5.0 Basophils % 1.0 Nucleated RBC % 3.0 H Absolute Neutrophils 6.21 Absolute Lymphocytes 2.40 Absolute Monocytes 0.80 Absolute Eosinophils 0.50 Absolute Basophils 0.10 RBC Morphology See Below Polychromasia Present Sodium 138 Potassium 4.6 Chloride 103 Carbon Dioxide 32.1 H Anion Gap 2.9 L BUN 7 Creatinine 0.8 Est GFR (CKD-EPI 2020) 105.82 Glucose 261 H Calcium 9.5 Time Spent with Patient Time Spent with Patient: 25-34 minutes Time was spent: preparing to see the patient(eg.review tests), referring, communicating with other health after school caregiver, indepentently interpreting results and counseling the patient
[2024-04-16] MEDS: Enoxaparin 40 MG/0.4 ML SYR SC (19:37)
[2024-04-16] MEDS: Doxycycline Hyclate 100 MG CAP PO (19:38)
[2024-04-16 20:29] VITALS: BP 170/97; PULSE 86; RESP 22; TEMP 36.6; O2SAT 96
[2024-04-17 02:22] VITALS: BP 145/92; PULSE 79; RESP 17; TEMP 36.9; O2SAT 97
[2024-04-17] MEDS: Normal Saline Flush 10 ML SYR IVP ×2 (06:32→08:22)
[2024-04-17] MEDS: Acetaminophen 500 MG TAB 1000 MG PO ×2 (06:39→16:35)
[2024-04-17] MEDS: MORPHine 4 MG/ML SYR IM/IV ×3 (06:39→16:35)
[2024-04-17 06:46] LABS: HCT 35.4 % (40.0-50.0); HGB 12.1 g/dL (13.5-17.5); MCH 28.7 pg (27.0-33.0); MCHC 34.2 % (32.0-36.0); MCV 84 fL (80-95); MPV 9.1 fL (8.0-11.0); Platelet Count 507 10^3/uL (130-400); RBC 4.22 10^6/uL (4.36-5.78); RDW 12.7 % (11.8-14.1); RDW-SD 38.5 fL; WBC 10.04 10^3/uL (4.4-10.8)
[2024-04-17 07:58] VITALS: BP 150/134; PULSE 87; RESP 15; TEMP 37.1; O2SAT 95
[2024-04-17] MEDS: Doxycycline Hyclate 100 MG CAP PO (08:19)
[2024-04-17] MEDS: Insulin Aspart 300 UNITS/3 ML PEN SC ×2 (08:19→12:09)
[2024-04-17 08:32] VITALS: BP 140/82
--- NOTE | 2024-04-17 12:10 | W.NUTCONSULT ---
Date of service: 04/17/24 Time of Service: 12:10 Nutritional Consult ASSESSMENT: Received consult request yesterday regarding needed education and management opinion for new dx of diabetes. I have visited with Efrem multiple times this admission as nursing had informed me of new dx as well. Pt denies family hx of diabetes as far as he knows. Dont see a current A1C in the computer. fasting glucose 376,304,261 on 8th,9th and 11th respectively. 274 at breakfast today and 262 at lunch. managed with sensitive sliding scale novolog TID at meals. 04/16 GFR >100 NUTRITIONAL DIAGNOSIS: Hyperglycemia related to new dx of DM as evidenced by mutliple elevated fasting and nonfasting glucose results consistent with diabetes dx. INTERVENTION: Suggest A1C lab, Urine albumin to creatinine ratio lab, vitamin D lab. Would recommend basal insulin to help correct fasting hyperglycemia (start at 10u and titrate q3 days based of fasting readings) Would recommnend HS glucose as well with correction at meals. Pt is appropriate for metformin and SGLT-2i to help bring glucose closer to target. I met with patient twice this admission to provide handouts and discuss general diabetes management with diet and offered more detailed outpatient visits (patient not always fully alert and focused on my visits). He has my contact info to call and schedule outpatient nutrition visits. MONITORING AND EVALUATION: will monitor glucose/labs and continue to provide periodic episodes of education as desired. Time Spent in Nutritional Counseling and Treatment: 35 minutes
--- NOTE | 2024-04-17 14:45 | PDOC.HHF2F ---
Home Health Referral Home Health Orders Clinical synopsis of why skilled professionals are needed: Efrem has an infected umbilical hernia wound that requires daily packing. He is not able to perform it himself, and has no assistance with it. Packing is sterile Kerlix gauze gently packed in the wound bed, moistened if necessary and covered with an ABD. Dressing should be changed daily. Medical diagnosis necessitation home health referral: Infected umbilical hernia repair wound Registered Nurse: Check all that apply Assess wound for signs and symptoms of infection, instruct on wound care and/or provide skilled wound care consisting of: Assess erythema and induration of abdominal wall, and change packing daily Precautions List Precautions: Efrem is recovering from the flu Home Bound Status Assistance of another person (Describe assistance and medical necessity): Efrem needs assistance with wound care, as he is not able to perform it himself, and has limited ability to transport back and forth from the office. Patient has a condition such that leaving home is medically contraindicated (Describe): Open wound with packing Describe why leaving home would require a considerable and taxing effort: Side effects from pain medication (sedation/drowsiness) Encounter Date and Reason: I certify that a FTF encounter for this patient was performed on April 17, 2024 and that such encounter was related to the primary reason the patient requires home health services. The encounter was conducted in the following manner: By me as the certifying physician, CONTINUOUS TOWEL ROLLER, PA or By an inpatient physician, CONTINUOUS TOWEL ROLLER or PA during an inpatient stay who communicated findings to me, Certification And Authentication I certify that I composed the above information based on my clinical judgment relating to this patient's medical condition and, if applicable, clinical findings communicated to me by the NPP or inpatient physician who performed the FTF encounter. Name of Provider that will be monitoring home health services: Cliff Jimenes
--- NOTE | 2024-04-17 14:48 | W.PM.DS.N ---
Date of service: 04/17/24 Time of Service: 14:48 DS: Diagnosis Discharge Diagnosis (1) Abdominal wall abscess at site of surgical wound: Status: Acute Asessment and Plan: Status post incision and drainage with initiation of doxycycline for methicillin sensitive Staph aureus. Discharge home with visiting nurses, and office follow-up this week Discharge Plan Disposition Patient Disposition: Home W/Home Health Services Condition: Fair Discharge Details Reason For Visit: intraabdominal abscess Admit Date/Time: 04/13/24 15:00 Admit Provider: Cliff Jimenes Attending Provider: Cliff Jimenes Primary Care Provider: None,None Hospital Course Hospital Course: Efrem is 53 years old. He came to the emergency department the week for last with abdominal pain secondary to an incarcerated umbilical hernia repair. He underwent laparoscopic umbilical hernia repair with permanent mesh. His really recovery was uneventful, and he was discharged home. He developed increasing pain around his umbilicus, and skin changes concerning for infection. Came back to the emergency department underwent a CT scan that suggested a umbilical abscess. He underwent incision and drainage. The wound was left open with packing, and a surgical drain was left towards the base. Culture data grew methicillin sensitive Staph aureus. Erythema and induration were improving with wet-to-dry wound care. Antibiotics were narrowed to doxycycline, and his white blood cell count normalized with favorable vital signs. He was discharged home with visiting nurses for wound care, and an outpatient office visit to reassess the wound. Home Meds and New Rx's Prescriptions: New tramadol 50 mg tablet 50 mg PO Q8H PRNQty: 15 0RF Rx Instructions: Take 1 tablet by mouth up to every 8 hours if needed for severe pain. Consider taking a dose of medication approximately half an hour before wound changes if needed. doxycycline monohydrate 100 mg tablet 100 mg PO BID Qty: 20 0RF Rx Instructions: Take 1 tablet by mouth in the morning, 1 tablet by mouth in the evening Continued metformin 500 mg tablet 500 mg PO BID Patient Comments: TAKE 1 TABLET BY MOUTH TWICE DAILY WITH MEALS Discharge Instructions Additional Instructions: Efrem, was very nice meeting you in the hospital, and am sorry that you find yourself recovering from an infection secondary to your hernia repair. Like we talked about before your discharge, were trying to arrange a visiting nurse to come to the house with wound care. As I showed you today, there is a role of simple gauze that is used to help wick the wound clean. We use another absorptive dressing on top of that to help control drainage. Once you get comfortable with this wound, an ideal way to take care of it would be to remove the outer dressing, and all of the packing. Take a shower, rinsing your abdominal wall with warm soapy water. Try to rinse the wound clean as best you can. When you get out of the shower, gently repack the replace the packing in the wound, filling it from the bottom to the top. Then put any type of simple bandage over top of it to hold it in place. Ideally, this wound will heal from the bottom towards the top, becoming a little bit more more shallow each day. Like we talked about beforehand, the dressing should be changed at least once per day. If you have the visiting nurse do that, that is fine, and if you get to the point where you are able to take care of it a little more yourself, then the process I mentioned above will be most useful. Patients do great if they can change it 2 or 3 times throughout the course of the day. You do not necessarily need to take a shower every single time. It is just that many patients find that very comfortable. As I mentioned, I added to prescription medications. The first medication is the antibiotic, which she will take once in the morning and once in the evening. For now, we will plan for a 10-day course. This may need to be extended. I also added a prescription for some pain medication if you need that. As you mentioned, using Tylenol and ibuprofen, and even ice packs over the incision to help with pain will also be very useful. I encourage you to keep track of your temperature. You should take your temperature once in the morning, and once in the evening, and at any point during the day if you feel like you have a fever. If you find that your temperature exceeds 100 degrees, please call my office, or call the hospital after hours and page the surgeon on-call. If anything else at all concerns you, please call and let us know. I have also taken the liberty of setting up a follow-up appointment in the office with me on Monday the . It is scheduled for 1:30 PM. Please let me know if this causes any issues for you. Referrals: Cliff Jimenes MD [ [facility]FF [facility]YSICIAN] - (April 19 at 1:30 PM) Activity:: No heavy lifting Equipment/Supplies:: Kerlix gauze and ABDs Diet:: As Tolerated DS: Summary Time Spent with Patient providing and/or coordinating discharge services: Greater than 30 minutes Status at Discharge Functional status at discharge: independent ambulation Overall status at discharge: patient is progressing back to baseline Mental Status: mental status grossly normal Speech and Movement: speech and movement normal Mood: congruent mood Affect: normal affect Quality:SDOH Health Related Social Needs: No Data to Display Exam GI Other: Abdomen is soft and nondistended. Bowel sounds are normal. Wound is mostly clean, with some purulent exudate on the gauze packing. Induration is improving. Minimal erythema. Psych Mental Status: mental status grossly normal Speech and Movement: speech and movement normal Mood: congruent mood Affect: normal affect DS: Data Vitals/I&O Vitals and I&O: Vital Signs Temperature 98.8 F 04/17/24 07:58 Temperature Source Temporal Artery Scan 04/17/24 07:58 Pulse 87 04/17/24 07:58 Pulse Rhythm Regular 04/13/24 15:22 Pulse 94 H 04/13/24 14:57 Respiratory Rate 15 04/17/24 07:58 Respiratory Effort Normal 04/13/24 15:22 Respiratory Depth Normal 04/13/24 15:22 Respiratory Pattern Normal 04/13/24 15:22 Blood Pressure 140/82 04/17/24 08:32 Blood Pressure Mean 93 04/13/24 14:57 Pulse Oximetry 95 04/17/24 07:58 Respiratory End-tidal CO2 30 04/13/24 14:57 Oxygen Delivery Method Room Air 04/17/24 07:58 Oxygen Flow Rate 0 04/17/24 07:58 Pain Level 5 04/17/24 12:17 Comment BP cycled twice, RN notified. 04/17/24 07:58 Comment RA 04/13/24 08:40 Intake & Output 04/16/24 04/17/24 04/17/24 23:59 11:59 23:59 Intake Total 690 / 2170 290 / 290 Output Total 1560 Balance 680 / 610 290 / 290 Intake: IV 600 / 1720 Oral 90 / 450 280 / 280 Output: Drainage Mid Anterior Lateral Abdomen Data Completed and Pending Labs on day of discharge: Labs from last 24 hours 04/17/24 06:05 WBC 10.04 RBC 4.22 L Hgb 12.1 L Hct 35.4 L MCV 84 MCH 28.7 MCHC 34.2 RDW 12.7 Plt Count 507 H MPV 9.1 Preliminary micro results at discharge 04/13/24 13:35 Anaerobic Culture - Preliminary Abdomen Anaerobic gram positive cocci Anaerobic gram positive cocci#2 04/13/24 13:35 Surgical Culture - Preliminary Abdomen Staphylococcus aureus 04/13/24 06:21 Blood Culture - Preliminary Blood NO GROWTH 96 HOURS 04/13/24 06:05 Blood Culture - Preliminary Blood NO GROWTH 96 HOURS PFSH All Active Problems (Updated 04/13/24 @ 12:35 by Migel GIPSON MD) Abdominal wall abscess at site of surgical wound (Acute) Sepsis (Acute) Abdominal wall cellulitis (Acute) Awareness under anesthesia (Acute) Please see ANES note 04/02/2024 Incarcerated umbilical hernia (Acute) Social History Smoking/Tobacco Use Status: Never Smoking risk assessment performed?: Yes Alcohol Intake: never Drug use: Never Substance use type: does not use Housing: house Do you feel safe at home: Yes Do you feel safe in your relationship?: Yes Time Spent with Patient Time Spent with Patient: 45-69 minutes Time was spent: preparing to see the patient(eg.review tests), ordering medications,tests, procedures, indepentently interpreting results, counseling the patient and care coordination
[2024-04-17 15:29] VITALS: BP 157/92; PULSE 86; RESP 15; TEMP 36.7; O2SAT 94
--- NOTE | 2024-04-17 19:27 | CMDISCH_ITS ---
Date of service: 04/17/24 Time of Service: 19:27 LACE Index Scoring Tool Questions: Length of Stay (in days): 4 - 6 Was the patient admitted via the E.D.?: Yes E.D. Visits: 1 Answers: Total Score: 8 Risk of Readmission: Low Risk Care Management Discharge Plan Reason for Hospitalization: Intraabdominal abscess Discharge Plan: Efrem returned home today with new RONI RN, which will be followed by surgical services. His drove him home via private vehicle. He will follow up with surgical services, and his discharge plan of care. CM will send a referral to the motion picture film examiner provider to establish care with a new PCP in the community. He is happy to be going home. Patient/Family Education Needs: Review discharge instructions and limitations, discussion of self care needs including ask me three. Services Needed at Discharge: Home Health Care Services (new RONI RN) [facility] Health Related Social Needs: No Data to Display
== END 2024-04-17 18:00 | disposition home health service (06) | DRG 920 ==
LOC: ER 11:54 → SUR 12:54 → MS 15:17
PROVIDERS: Student in an Organized Health Care Education/Training Program; Surgery; Admitting Provider Surgery; Emergency Provider Emergency Medicine; Visit Provider Surgery
PROC: 0J9800Z Drainage of Abdomen Subcutaneous Tissue and Fascia with Drainage Device, Open Approach (ICD-10-PCS; CPT 10061; principal; 2024-04-13 12:15)
DX: T85.79XA Infection and inflammatory reaction due to other internal prosthetic devices, implants and grafts, initial encounter; L02.211 Cutaneous abscess of abdominal wall; L03.311 Cellulitis of abdominal wall; B95.61 Methicillin susceptible Staphylococcus aureus infection as the cause of diseases classified elsewhere; G89.18 Other acute postprocedural pain; R10.33 Periumbilical pain
CPT/HCPCS: 10061; 00123; 36415; 64488; 74177; 80048; 80053; 84145; 85027; 87040; 87077; 87637; 94640; 96365; 96366; 96367; 96368; 96375; 96376; 99285; J1650; 71260; 80202; 81003; 81015; 83605; 85025; 87070; 87075; 87086; 87186; 87205; J0131; J0665; J0666; J1100; J1171; J1815; J1836; J1885; J1956; J2003; J2250; J2270; J2405; J2704; J3370; J3372; J3490; J7620

== ENCOUNTER 2024-04-22 23:48 | Emergency (ER) | payer MEDICAID, SELFPAY ==
[2024-04-23] VITALS (21 sets, daily range): BP systolic 106–145; BP diastolic 61–84; PULSE 80–96; RESP 16; TEMP 36.8; O2SAT 91–97
--- NOTE | 2024-04-23 01:00 | W.ED.GENAD ---
Discharge Plan Disposition Patient Disposition: Home Condition: Good Discharge Details Clinical Impression: Abdominal pain Primary Care Provider: None,None ED Provider: Livia Nolasco Home Meds and New Rx's Prescriptions: Continued metformin 500 mg tablet 500 mg PO BID Patient Comments: TAKE 1 TABLET BY MOUTH TWICE DAILY WITH MEALS tramadol 50 mg tablet 50 mg PO Q8H PRNQty: 15 0RF Rx Instructions: Take 1 tablet by mouth up to every 8 hours if needed for severe pain. Consider taking a dose of medication approximately half an hour before wound changes if needed. doxycycline monohydrate 100 mg tablet 100 mg PO BID Qty: 20 0RF Rx Instructions: Take 1 tablet by mouth in the morning, 1 tablet by mouth in the evening Discharge Instructions Instructions: Abdominal Pain, Adult ED Additional Instructions: Tylenol and ibuprofen over the counter for pain; follow the directions on the bottle. Keep your surgical appointment at 1130 this morning. Return to the emergency department for new or worsening symptoms including fever, new/different/worse abdominal pain, thick green or white discharge from your wound, or if you have any other concerns. HPI General Mode of arrival: ambulatory. Date/Time Provider Initiated Documentation: 04/23/24 00:18. Limitations to Documentation: no limitations. Information obtained by: patient. HPI Narrative: 53yo M with s/p incarcerated umbilical hernia surgery 04/02/24 at [facility], recent admission for post op infection/abscess 04/13-04/17, presenting with concern for developing infection/abscess. Has been taking doxycycline as prescribed. Yesterday began to notice swelling and pain to the right of his incision, worsening today. Feels similar to his prior infection before his most recent admission. No fevers, chills, rash, nausea, vomiting. Otherwise in his usual state of health. Related Data Home Medications ?Medication ?Instructions ?Recorded ?Confirmed metformin 500 mg tablet 500 mg PO BID 04/02/24 04/23/24 doxycycline monohydrate 100 mg 100 mg PO BID #20 tabs 04/17/24 04/23/24 tablet tramadol 50 mg tablet 50 mg PO Q8H PRN #15 tabs 04/17/24 04/23/24 Previous Rx's ?Medication ?Instructions ?Recorded doxycycline monohydrate 100 mg 100 mg PO BID #20 tabs 04/17/24 tablet tramadol 50 mg tablet 50 mg PO Q8H PRN #15 tabs 04/17/24 Allergies Allergy/AdvReac Type Severity Reaction Status Date / Time Penicillins Allergy Severe Anaphylaxis Verified 04/23/24 00:08 General Stated Complaint: Abd Prob ANGELICA: 3 Review of Systems Narrative: see HPI Exam Narrative Exam Narrative: General: Alert, well appearing, well nourished, in no acute distress. Head: Normocephalic, atraumatic Neck: Trachea midline, ?Neck supple. ENT: ?MMM.? Cardiac: ?RRR, no murmurs appreciated Resp: No respiratory distress. CTAB. Abd: ?Soft, non-distended. Umbilical incsion packed with gauze, no purulent drainge. Palpable induration and tenderness to right of umbilicus, roughly 10cm Extremities: ?No deformities.? No peripheral edema. Neurologic: GCS 15. ? Moves all extremities freely against gravity Course Vital Signs Vital signs: Vital Signs Temperature 36.8 C 04/23/24 00:04 Pulse 96 H 04/23/24 00:04 Respiratory Rate 16 04/23/24 00:04 Blood Pressure 145/84 H 04/23/24 00:04 Pulse Oximetry 95 04/23/24 00:04 Temperature 36.8 C 04/23/24 00:04 Temperature Source Tympanic 04/23/24 00:04 Pulse 96 H 04/23/24 00:04 Respiratory Rate 16 04/23/24 00:04 Blood Pressure 145/84 H 04/23/24 00:04 Blood Pressure Position Sitting 04/23/24 00:04 Pulse Oximetry 95 04/23/24 00:04 Oxygen Delivery Method Room Air 04/23/24 00:04 Oxygen Flow Rate 0 04/23/24 00:04 Pain Level 7 04/23/24 00:04 Medical Decision Making 53yo M with s/p incarcerated umbilical hernia surgery 04/02/24 at [facility], recent admission for post op infection/abscess 04/13-04/17, presenting with concern for developing infection/abscess. Yesterday began to notice swelling and pain to the right of his incision, worsening today, feels similar to his prior infection before his most recent admission. Slightly tachycardiac on arrival, vital signs otherwise reassuring. Systemically well, not overtly septic. Does have palpable focul induration and tenderness on exam. Out of abundance of caution will treat with IV abx while awaiting results of imaging as recurrent abscess seems likely. Morphine and zofran for symptoms. Labs reviewed as below, CBC reassuring with no leukocytosis, CMP with no actionable abnormalities, ESR & CRP borderline elevated, procal reassuring. CT abd pelvis independently reviewed;no abscess on my view, radiology read as post-op changes. Discussed with Dr. Sanchez; with reassuring labs and CT, pt okay to followup in clinic. Has appointment scheduled for 1130 this morning. On reassessment patient is well appearing with reassuring vital signs. Patient is agreeable to plan to followup in clinic. Discharged home; discharge instructions and return precautions were reviewed with patient who verbalized understanding. All questions were answered and he is in full agreement with the plan. Medical Records Medical records reviewed: Yes I reviewed the patient's medical records. Medical records narrative: H&P and DC summary most recent admission Imaging Data Radiologic Study: Imaging: CT Scan Radiologist's impression: IMPRESSION: There is inflammation and gas in the rectus sheath and subcutaneous tissue of the anterior abdominal wall near and at the umbilicus, consistent with recent postoperative change related to anterior abdominal wall hernia repair. No abscess or hematoma. Lab Data Lab results reviewed: Yes I reviewed the patient's lab results. Labs: 04/23/24 01:35 Blood Blood Culture - Pending 04/23/24 01:27 Blood Blood Culture - Pending Laboratory Tests Range/Units 04/23/24 04/23/24 00:25 01:27 WBC (4.4-10.8) 10^3/uL 8.94 RBC (4.36-5.78) 10^6/uL 4.60 Hgb (13.5-17.5) g/dL 13.3 L Hct (40.0-50.0) % 39.1 L MCV (80-95) fL 85 MCH (27.0-33.0) pg 28.9 MCHC (32.0-36.0) % 34.0 RDW (11.8-14.1) % 13.3 Plt Count (130-400) 10^3/uL 551 H MPV (8.0-11.0) fL 9.4 Immature Gran % % 3.9 Neutrophils % % 50.8 Lymphocytes % % 32.7 Monocytes % % 10.0 Eosinophils % % 1.6 Basophils % % 1.0 Nucleated RBC % (0.0-0.3) % 0.0 Absolute Neutrophils (1.2-6.7) 10^3/uL 4.55 Absolute Lymphocytes (1.2-3.4) 10^3/uL 2.92 Absolute Monocytes (0.1-0.8) 10^3/uL 0.89 H Absolute Eosinophils (0.0-0.7) 10^3/uL 0.14 Absolute Basophils (0.0-0.2) 10^3/uL 0.09 ESR (0-20) mm/hr 56 H VBG Lactate (<or=2.0) mmol/L 1.8 Sodium (136-145) mmol/L 135 L Potassium (3.5-5.1) mmol/L 4.3 Chloride (98-107) mmol/L 98 Carbon Dioxide (21.0-32.0) mmol/L 29.2 Anion Gap (3-11) mmol/L 7.8 BUN (7-18) mg/dL 22 H Creatinine (0.70-1.30) mg/dL 0.8 Est GFR (CKD-EPI 2020) (mL/min/1.73m2) 105.82 Glucose (74-106) mg/dL 274 H Calcium (8.5-10.1) mg/dL 10.4 H Total Bilirubin (0.2-1.0) mg/dL 0.38 AST (15-37) U/L 11 L ALT (16-63) U/L 34 Alkaline Phosphatase (46-116) U/L 206 H C-Reactive Protein (<or=0.5) mg/dL 0.70 H Total Protein (6.4-8.2) g/dL 8.2 Albumin (3.4-5.0) g/dL 3.4 Procalcitonin ng/mL < 0.10 Quality:SDOH Health Related Social Needs: No Data to Display PFSH All Active Problems (Updated 04/23/24 @ 03:30 by Livia Nolasco MD) Abdominal pain (Acute) Abdominal wall abscess at site of surgical wound (Acute) Sepsis (Acute) Awareness under anesthesia (Acute) Please see ANES note 04/02/2024 Incarcerated umbilical hernia (Acute) Social History Smoking/Tobacco Use Status: Never Smoking risk assessment performed?: Yes Alcohol Intake: never Drug use: Never Substance use type: does not use Housing: house Do you feel safe at home: Yes Do you feel safe in your relationship?: Yes
[2024-04-23 01:28] LABS: Abs Immature Grans 0.35 10^3/uL (0.0-0.06); Absolute Basophil Count 0.09 10^3/uL (0.0-0.2); Absolute Eosinophil Count 0.14 10^3/uL (0.0-0.7); Absolute Lymphocyte Count 2.92 10^3/uL (1.2-3.4); Absolute Monocyte Count 0.89 10^3/uL (0.1-0.8); Absolute Neutrophil Count 4.55 10^3/uL (1.2-6.7); Eosinophils % 1.6 %; HCT 39.1 % (40.0-50.0); HGB 13.3 g/dL (13.5-17.5); Immature Grans % 3.9 %; Lymphocytes % 32.7 %; MCH 28.9 pg (27.0-33.0); MCV 85 fL (80-95); MPV 9.4 fL (8.0-11.0); Neutrophils % 50.8 %; Platelet Count 551 10^3/uL (130-400); RDW 13.3 % (11.8-14.1); RDW-SD 40.9 fL; WBC 8.94 10^3/uL (4.4-10.8)
[2024-04-23 01:29] LABS: ESR 56 mm/hr (0-20)
[2024-04-23 01:31] LABS: Lactate 1.8 mmol/L (<or=2.0)
[2024-04-23 01:37] LABS: ALT 34 U/L (16-63); AST 11 U/L (15-37); Albumin 3.4 g/dL (3.4-5.0); Alkaline Phosphatase 206 U/L (46-116); Anion Gap 7.8 mmol/L (3-11); BUN 22 mg/dL (7-18); Bilirubin, Total 0.38 mg/dL (0.2-1.0); CO2 29.2 mmol/L (21.0-32.0); CREATININE 0.8 mg/dL (0.70-1.30); Calcium 10.4 mg/dL (8.5-10.1); Chloride 98 mmol/L (98-107); Estimated GFR 105.82 (mL/min/1.73m2); Glucose 274 mg/dL (74-106); Potassium 4.3 mmol/L (3.5-5.1); Sodium 135 mmol/L (136-145); Total Protein 8.2 g/dL (6.4-8.2)
[2024-04-23 01:47] LABS: Procalcitonin < 0.10 ng/mL
--- NOTE | 2024-04-23 01:59 | DI.CT_ITS ---
Exam(s) CT ABDOMEN PELVIS W EXAM: CT ABDOMEN PELVIS W CLINICAL HISTORY: ? post op infection/abscess, s/p hernia repair TECHNIQUE: Imaging Protocol: Axial computed tomography images with coronal and sagittal reformatted images were created and reviewed. CONTRAST MATERIAL: Intravenous: Omnipaque 350 Contrast volume:100 mL Oral: No COMPARISON: CT CT ABDOMEN PELVIS W from 04/02/[address] CHEST/ABD/PEL W from 04/13/2024 FINDINGS: ABDOMEN: Lung Bases: No acute abnormality. Liver: There is diffuse decreased attenuation of the liver suggesting fatty infiltration. Stable par enchymal calcifications are again seen in the dome of the right lobe of the liver. The liver is enla rged. No measurable mass. Portal, Superior Mesenteric, and Splenic Veins: Unremarkable. Gallbladder and Biliary Tract: The gallbladder is contracted. Cholelithiasis is present. There is n o biliary ductal dilatation. Pancreas: Normal density, no abnormal calcifications or inflammatory process. Spleen: Normal. Adrenals: No masses seen. Kidneys: Normal size, contour and axis. Bilateral nephrolithiasis. There is no obstructive uropathy. No masses seen. Abdominal Aorta: Abdominal portion non-dilated. Atherosclerotic calcification is present. 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 Bowel: There is diverticulosis of the colon without evidence of acute diverticulitis. There is no ev idence of bowel obstruction or bowel wall thickening. Appendix is unremarkable. Peritoneal Cavity: There is a small amount of intra-abdominal air along the anterior abdominal wall. There is infiltration of the soft tissues in the anterior peritoneal cavity. No focal fluid collect ion is seen to suggest an abscess. Lymph Nodes: Within normal limits. Bones: Within normal limits for the patient's age. There is a cyst seen in the L3 vertebral body. Soft Tissues: There are postsurgical changes seen in the midline in the anterior abdominal wall consi stent with the patient's umbilical hernia repair. Soft tissue gas is seen in the anterior abdominal wall. There is a question of a small fluid collection in the anterior abdominal wall centrally measu ring 1 cm. This may represent a small abscess. Hematoma or seroma cannot be excluded. PELVIS: Bladder: Symmetric distention, no gross wall thickening. Reproductive Organs: Unremarkable as visualized. Lymph Nodes: Within normal limits. Bones: Within normal limits for the patient's age. IMPRESSION: 1. Postsurgical changes in the midline anterior abdominal wall consist with the patient's umbilical h ernia repair. There is soft tissue gas and inflammation the subcutaneous tissues. There is a questi on of a tiny 1 cm fluid collection at the base of the surgical scar. This may represent a small shazia irma or seroma. Tiny abscess cannot be excluded. 2. Tiny residual pneumoperitoneum and inflammation intra-abdominally. This is likely postsurgical. No intra-abdominal abscess is seen. 3. Incidental findings in the abdomen and pelvis as described above which include cholelithiasis and bilateral nephrolithiasis. RADIATION DOSE DELIVERED: 1,077.42mGy.cm Total DLP DATA REPOSITORY: All CT scans at this facility are submitted to the National Radiology Data Registry (NRDR) Dose Index Registry (DIR) with the [employer] (A[employer]). RADIATION OPTIMIZATION: All CT scans at this facility use at least one of these dose optimization te chniques: automated exposure control; mA and/or kV adjustment per patient size (includes targeted exa ms where dose is matched to clinical indication); or iterative reconstruction.
[2024-04-23] MEDS: Omnipaque 350 MG/ML 100 ML BTL IJ (02:00)
[2024-04-23] MEDS: Normal Saline - Diluent 50 ML VIAL IJ (02:01)
[2024-04-23] MEDS: Ondansetron 4 MG/2 ML VIAL IVP (02:02)
[2024-04-23] MEDS: metroNIDAZOLE 500 MG/100 ML BAG 100 MG IVPB (02:03)
[2024-04-23] MEDS: levoFLOXacin 750 MG/150 ML BAG 100 MG IVPB (02:03)
[2024-04-23] MEDS: MORPHine 4 MG/ML SYR IVP (02:03)
--- NOTE | 2024-04-23 02:27 | DI.VRAD_ITS ---
PROCEDURE INFORMATION: Exam: CT Abdomen And Pelvis With Contrast Exam date and time: 04/23/2024 1:43 AM Age: 53 years old Clinical indication: Prior surgery; Surgery date: 3-7 days post-operative; ? Post op infection/abscess, S/P hernia repair TECHNIQUE: Imaging protocol: Computed tomography of the abdomen and pelvis with contrast. Radiation optimization: All CT scans at this facility use at least one of these dose optimization techniques: automated exposure control; mA and/or kV adjustment per patient size (includes targeted exams where dose is matched to clinical indication); or iterative reconstruction. Contrast material: [id number]; Contrast volume: 100 ml; Contrast route: INTRAVENOUS (IV); COMPARISON: CT CHEST/ABD/PEL W 04/13/2024 7:36 AM FINDINGS: Lungs: Scarring/atelectasis in the lateral right lung base. Liver: Hepatic steatosis. Gallbladder and biliary ducts: Cholelithiasis. No cholecystitis. No biliary ductal dilatation. Pancreas: Unremarkable. Spleen: Normal. Adrenal glands: Normal. No mass. Kidneys and ureters: Nonobstructing stones in the kidneys bilaterally. Stomach and bowel: Colonic diverticulosis. No diverticulitis. Appendix: Normal appendix. Intraperitoneal space: No pneumoperitoneum, hemoperitoneum, or intraperitoneal abscess. Vasculature: Unremarkable. Lymph nodes: Unremarkable. Urinary bladder: Unremarkable as visualized. Reproductive: Unremarkable as visualized. Bones/joints: Unremarkable. No acute fracture. Soft tissues: There is inflammation and gas in the rectus sheath and subcutaneous tissue of the anterior abdominal wall near and at the umbilicus, consistent with recent postoperative change related to anterior abdominal wall hernia repair. No abscess or hematoma. IMPRESSION: There is inflammation and gas in the rectus sheath and subcutaneous tissue of the anterior abdominal wall near and at the umbilicus, consistent with recent postoperative change related to anterior abdominal wall hernia repair. No abscess or hematoma. Dictated and Authenticated by: Efrem Zelaya MD. Orderin Constance Bhakta MD
== END 2024-04-23 03:41 | disposition home or self-care (01) ==
PROVIDERS: Emergency Provider Student in an Organized Health Care Education/Training Program
DX: R10.9 Unspecified abdominal pain (principal); Z98.890 Other specified postprocedural states
CPT/HCPCS: 36415; 80053; 84145; 85652; 87040; 96365; 96368; 96375; 99285; 74177; 83605; 85025; 86140; 99284; J1836; J1956; J2270; J2405; J3490

== ENCOUNTER 2024-05-01 16:24 | Outpatient (REF) | payer MEDICAID, SELFPAY ==
[2024-05-01 15:34] LABS: Abs Immature Grans 0.04 10^3/uL (0.0-0.06); Absolute Basophil Count 0.07 10^3/uL (0.0-0.2); Absolute Eosinophil Count 0.14 10^3/uL (0.0-0.7); Absolute Lymphocyte Count 2.31 10^3/uL (1.2-3.4); Absolute Monocyte Count 0.47 10^3/uL (0.1-0.8); Absolute Neutrophil Count 2.34 10^3/uL (1.2-6.7); Basophils % 1.3 %; Eosinophils % 2.6 %; HCT 40.2 % (40.0-50.0); HGB 13.7 g/dL (13.5-17.5); Immature Grans % 0.7 %; MCHC 34.1 % (32.0-36.0); MCV 85 fL (80-95); MPV 10.1 fL (8.0-11.0); Monocytes % 8.8 %; Neutrophils % 43.6 %; Platelet Count 338 10^3/uL (130-400); RBC 4.72 10^6/uL (4.36-5.78); RDW 13.9 % (11.8-14.1); RDW-SD 42.7 fL; WBC 5.37 10^3/uL (4.4-10.8)
[2024-05-01 16:30] LABS: ALT 55 U/L (16-63); AST 31 U/L (15-37); Albumin 3.9 g/dL (3.4-5.0); Alkaline Phosphatase 168 U/L (46-116); Anion Gap 10.7 mmol/L (3-11); BUN 15 mg/dL (7-18); Bilirubin, Total 0.35 mg/dL (0.2-1.0); CO2 25.3 mmol/L (21.0-32.0); CREATININE 0.6 mg/dL (0.70-1.30); Calcium 9.7 mg/dL (8.5-10.1); Chloride 100 mmol/L (98-107); Cholesterol 306 mg/dL (<200); Estimated GFR 115.43 (mL/min/1.73m2); Glucose 164 mg/dL (74-106); HDL Cholesterol 40 mg/dL (40-60); Potassium 4.4 mmol/L (3.5-5.1); Sodium 136 mmol/L (136-145); TSH 3.71 uIU/mL (0.36-3.74); Total Protein 7.8 g/dL (6.4-8.2); Triglyceride 759 mg/dL (<150)
[2024-05-01 17:03] LABS: COMMENT (LAB VIEW ONLY) 123.22 mg/dL; Microalb ug/mg Crea 24.9 ug/mg Cr
[2024-05-01 17:04] LABS: LDL CHOLESTEROL 157 mg/dL (<100)
== END 2024-05-01 16:25 | disposition home or self-care (01) ==
LOC: NCHCN 16:24
PROVIDERS: Visit Provider Family Medicine
DX: L02.211 Cutaneous abscess of abdominal wall (principal)
CPT/HCPCS: 80053; 80061; 83721; 82043; 82570; 84443; 85025

== ENCOUNTER 2024-07-19 13:36 | Outpatient (REF) | payer MEDICAID, SELFPAY ==
[2024-07-19 15:56] LABS: ALT 48 U/L (16-63); AST 26 U/L (15-37); Albumin 4.1 g/dL (3.4-5.0); Alkaline Phosphatase 104 U/L (46-116); Anion Gap 8.7 mmol/L (3-11); BUN 17 mg/dL (7-18); Bilirubin, Total 0.4 mg/dL (0.2-1.0); CO2 24.3 mmol/L (21.0-32.0); CREATININE 0.7 mg/dL (0.70-1.30); Calcium 9.4 mg/dL (8.5-10.1); Calculated LDL 124 mg/dL (<100); Chloride 103 mmol/L (98-107); Cholesterol 218 mg/dL (<200); Glucose 175 mg/dL (74-106); HDL Cholesterol 40 mg/dL (>or=40); Potassium 4.3 mmol/L (3.5-5.1); Sodium 136 mmol/L (136-145); Total Protein 7.9 g/dL (6.4-8.2); Triglyceride 272 mg/dL (<150)
[2024-07-19 16:04] LABS: Hemoglobin A1C 6.6 % (<5.7)
== END 2024-07-19 13:37 | disposition home or self-care (01) ==
LOC: NCHCN 13:36
PROVIDERS: PCP Family Medicine; Visit Provider Family Medicine
DX: E11.21 Type 2 diabetes mellitus with diabetic nephropathy (principal)
CPT/HCPCS: 80053; 80061; 83036